=== PATIENT | female | born 1990 | race Caucasian/White ===

== ENCOUNTER 2021-04-01 23:11 | Emergency (ER) | payer MEDICAID, SELFPAY ==
[2021-04-01 23:24] VITALS: BP 109/61; PULSE 81; RESP 16; TEMP 36.6; O2SAT 95; BMI 48.2
[2021-04-01 23:42] LABS: Appearance Urine CLEAR; Color Urine YELLOW; Glucose Urine UA NEG (NEG); Leukocyte Esterase Urine NEG (NEG); Nitrite Urine NEG (NEG); Specific Gravity - Urine >= 1.030 (1.005-1.025); Urine Blood NEG (NEG); Urine Ketones NEG (NEG); Urine Protein NEG (NEG-TRACE)
[2021-04-01 23:43] LABS: UPreg QC Valid YES; Urine Pregnancy NEGATIVE (NEGATIVE)
[2021-04-02 00:06] VITALS: BP 123/51; PULSE 75; RESP 18; TEMP 36.5; O2SAT 98
--- NOTE | 2021-04-02 00:16 | ED_ITS ---
HPI - Abdominal Pain General Chief Complaint: Abdominal Pain Stated Complaint: Abd pain Time Seen by Provider: 04/01/21 23:47 Source: patient Mode of arrival: ambulatory History of Present Illness HPI narrative: 30-year-old female without significant past medical history other than prior cholecystectomy presents with 2 days sharp, epigastric pain that is been associated with nausea, vomiting, diarrhea but patient denies any fever, chills, food contamination in states that she tried to eat twice a day, however developed vomiting afterwards. She denies any prescription drugs to include control and denies any use of alcohol. She denies any history of kidney stones. Related Data Previous Rx's Medication Instructions Recorded omeprazole 40 mg capsule,delayed 40 mg PO DAILY 30 Days #30 cap 04/02/21 release Allergies Allergy/AdvReac Type Severity Reaction Status Date / Time No Known Allergies Allergy Verified 04/01/21 23:22 [No Known Allergies*] Review of Systems Review of Systems Pertinent positives and negatives as stated in HPI 10 point review of systems is otherwise negative. Physical Exam Vital Signs: Vital Signs: Last Vital Signs Temp 97.7 F 04/02/21 00:06 Pulse 75 04/02/21 00:06 Resp 18 04/02/21 00:06 BP 123/51 L 04/02/21 00:06 Pulse Ox 98 04/02/21 00:06 Body Mass Index 48.2 VITAL SIGNS: Reviewed. GENERAL: Well developed, well nourished, in no acute distress. HEAD: Normocephalic/atraumatic EYES: PERRLA, EOMI OROPHARYNX: no oral lesions noted, posterior pharynx clear LUNGS: Normal breath sounds. No adventitious sounds or accessory muscle use. SpO2<98> CARDIOVASCULAR: Regular rate and rhythm without noted murmurs ABDOMEN: Obese, Soft, tenderness in epigastrium and right upper quadrant without rebound, non-distended with bowel sounds, no CVA tenderness SKIN: Inspection of the skin reveals no rashes NEUROLOGIC: Alert and oriented x 4. Course Course Course Narrative: 30-year-old female with history and clinical presentation suggestive of gastritis/ulcer, pancreatitis. Review of all investigations negative for acute findings and all results were discussed with the patient at bedside. She did receive a GI cocktail and on reassessment states that she has had improvement in her symptoms. She is noted to have tolerated oral intake prior to discharge. MDM - Abdominal Pain Lab Data Result diagrams: 04/02/21 00:18 04/02/21 00:18 Labs: Lab Results 04/01/21 04/01/21 04/02/21 Range/Units 23:35 23:35 00:18 WBC 4.6 L (4.8-10.8) X10*3/uL RBC 4.49 (4.20-5.50) X10*6/uL Hgb 12.4 (12.0-16.0) g/dl Hct 38.6 (37-47) % MCV 86.0 (80-98) fL MCH 27.6 (27.0-33.0) pg MCHC 32.1 (31.0-35.0) g/dl RDW 12.9 (11.0-16.0) % Plt Count 198 (160-400) X10*3/uL MPV 8.9 L (9.4-12.3) fL Immature Gran % (Auto) 0.2 (0.0-0.4) % Neut % (Auto) 55.2 (45-73) % Lymph % (Auto) 35.8 (20-40) % [place] % (Auto) 6.8 (2-11) % Eos % (Auto) 1.8 (0-4) % Baso % (Auto) 0.2 (0-2) % Lymph # (Auto) 1.6 (1.2-4.9) X10*3/uL [place] # (Auto) 0.3 (0.1-1.2) X10*3/uL Eos # (Auto) 0.1 (0.0-0.4) X10*3/uL Baso # (Auto) 0.0 (0.0-0.2) X10*3/uL Abs Immat Gran (auto) 0.01 (0.00-0.03) X10*3/uL Absolute Neuts (auto) 2.5 (2.0-8.3) X10*3/uL Absolute Nucleated RBC 0.000 (0.0-0.012) X10*3/uL Nucleated RBC % (auto) 0.0 (0.0-0.2) /100WBC Sodium (135-145) mmol/L Potassium (3.3-5.1) mmol/L Chloride (96-108) mmol/L Carbon Dioxide (22-29) mmol/L Anion Gap (12-20) BUN (9-16) mg/dL Creatinine (0.5-1.4) mg/dL Estim Creat Clear Calc Estimated GFR Random Glucose (60-115) mg/dL Calcium (8.4-10.2) mg/dL Total Bilirubin (0.0-1.0) mg/dL AST (5-31) U/L ALT (0-31) U/L Alkaline Phosphatase (39-117) U/L Total Protein (6.5-8.0) g/dL Albumin (3.5-5.0) g/dL Lipase (8-78) U/L Urine Color YELLOW Urine Appearance CLEAR Urine pH 6.0 (5.0-8.0) Ur Specific [place] >= 1.030 H (1.005-1.025) Urine Protein NEG (NEG-TRACE) MG/DL Urine Glucose (UA) NEG (NEG) MG/DL Urine Ketones NEG (NEG) MG/DL Urine Blood NEG (NEG) Urine Nitrite NEG (NEG) Ur Leukocyte Esterase NEG (NEG) Urine Test NEGATIVE (NEGATIVE) 04/02/21 Range/Units 00:18 WBC (4.8-10.8) X10*3/uL RBC (4.20-5.50) X10*6/uL Hgb (12.0-16.0) g/dl Hct (37-47) % MCV (80-98) fL MCH (27.0-33.0) pg MCHC (31.0-35.0) g/dl RDW (11.0-16.0) % Plt Count (160-400) X10*3/uL MPV (9.4-12.3) fL Immature Gran % (Auto) (0.0-0.4) % Neut % (Auto) (45-73) % Lymph % (Auto) (20-40) % [place] % (Auto) (2-11) % Eos % (Auto) (0-4) % Baso % (Auto) (0-2) % Lymph # (Auto) (1.2-4.9) X10*3/uL [place] # (Auto) (0.1-1.2) X10*3/uL Eos # (Auto) (0.0-0.4) X10*3/uL Baso # (Auto) (0.0-0.2) X10*3/uL Abs Immat Gran (auto) (0.00-0.03) X10*3/uL Absolute Neuts (auto) (2.0-8.3) X10*3/uL Absolute Nucleated RBC (0.0-0.012) X10*3/uL Nucleated RBC % (auto) (0.0-0.2) /100WBC Sodium 142 (135-145) mmol/L Potassium 3.6 (3.3-5.1) mmol/L Chloride 108 (96-108) mmol/L Carbon Dioxide 29 (22-29) mmol/L Anion Gap 9 L (12-20) BUN 11 (9-16) mg/dL Creatinine 0.72 (0.5-1.4) mg/dL Estim Creat Clear Calc 144.3 Estimated GFR > 60 Random Glucose 87 (60-115) mg/dL Calcium 9.0 (8.4-10.2) mg/dL Total Bilirubin 0.2 (0.0-1.0) mg/dL AST 14 (5-31) U/L ALT 18 (0-31) U/L Alkaline Phosphatase 81 (39-117) U/L Total Protein 6.6 (6.5-8.0) g/dL Albumin 3.8 (3.5-5.0) g/dL Lipase 34 (8-78) U/L Urine Color Urine Appearance Urine pH (5.0-8.0) Ur Specific [place] (1.005-1.025) Urine Protein (NEG-TRACE) MG/DL Urine Glucose (UA) (NEG) MG/DL Urine Ketones (NEG) MG/DL Urine Blood (NEG) Urine Nitrite (NEG) Ur Leukocyte Esterase (NEG) Urine Test (NEGATIVE) Discharge Plan Discharge Clinical Impression: Gastroenteritis, Abdominal discomfort Patient Disposition: Home, Self-Care Instructions: Gastritis (ED), Diet for Stomach Ulcers and Gastritis (ED), Gastroenteritis (ED) Additional Instructions: Follow-up with your primary care provider Saturday morning for re-evaluation and further outpatient management. Return to the ER for acute worsening of symptoms. Prescriptions: New omeprazole 40 mg capsule,delayed release(DR/EC) 40 mg PO DAILY 30 Days Qty: 30 RF: 0 PMFSH Past Medical History Source: nursing notes reviewed Medical History No known health problems Social History Social History Alcohol intake: never Patient Tobacco Use Status: Never used Tobacco Use of substances other than those prescribed or required for medical reasons: No Advance Directives: No Advance Directives Information Provided: Yes
[2021-04-02 00:26] LABS: MANUAL DIFF FLAG NO
[2021-04-02 00:27] LABS: Basophils Percent Auto 0.2 % (0-2); Eosinophils Absolute Auto 0.1 X10*3/uL (0.0-0.4); Eosinophils Percent Auto 1.8 % (0-4); Hematocrit 38.6 % (37-47); Hemoglobin 12.4 g/dl (12.0-16.0); Imm Gran Abs Auto 0.01 X10*3/uL (0.00-0.03); Imm Gran Pct Auto 0.2 % (0.0-0.4); Lymphocytes Absolute Auto 1.6 X10*3/uL (1.2-4.9); Lymphocytes Percent Auto 35.8 % (20-40); Mean Corpuscular HGB Conc 32.1 g/dl (31.0-35.0); Mean Corpuscular Hemoglobin 27.6 pg (27.0-33.0); Mean Platelet Volume 8.9 fL (9.4-12.3); Monocytes Absolute Auto 0.3 X10*3/uL (0.1-1.2); Monocytes Percent Auto 6.8 % (2-11); Neutrophils Absolute Auto 2.5 X10*3/uL (2.0-8.3); Neutrophils Percent Auto 55.2 % (45-73); Platelet Count 198 X10*3/uL (160-400); Red Blood Count 4.49 X10*6/uL (4.20-5.50); Red Cell Distribution Width 12.9 % (11.0-16.0); White Blood Count 4.6 X10*3/uL (4.8-10.8)
[2021-04-02 00:48] LABS: Alanine Aminotransferase 18 U/L (0-31); Albumin Level 3.8 g/dL (3.5-5.0); Alkaline Phosphatase 81 U/L (39-117); Anion Gap 9 (12-20); Aspartate Amino Transferase 14 U/L (5-31); Bilirubin Total 0.2 mg/dL (0.0-1.0); Blood Urea Nitrogen 11 mg/dL (9-16); Carbon Dioxide 29 mmol/L (22-29); Chloride 108 mmol/L (96-108); Creatinine Clr Calc Pharmacy 144.3; Estimated Glomerular Filt Rate > 60; Glucose Random 87 mg/dL (60-115); Lipase 34 U/L (8-78); Potassium 3.6 mmol/L (3.3-5.1); Sodium 142 mmol/L (135-145); Total Protein 6.6 g/dL (6.5-8.0)
[2021-04-02] MEDS: Magnesium Hydrox/Alum Hydrox 30 ML ORAL.SUSP PO (00:59)
[2021-04-02] MEDS: Lidocaine HCl Viscous 2 % 15 ML SOLUTION 10 ML MUCOUS MEM (00:59)
== END 2021-04-02 02:29 | disposition home or self-care (01) ==
PROVIDERS: Emergency Provider Student in an Organized Health Care Education/Training Program
DX: K52.9 Noninfective gastroenteritis and colitis, unspecified (principal); Z90.49 Acquired absence of other specified parts of digestive tract
CPT/HCPCS: 36415; 80053; 81003; 81025; 83690; 85025; 99283; 99285

== ENCOUNTER 2021-06-04 19:02 | Inpatient (IN) | payer MEDICAID, SELFPAY ==
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
[2021-06-04 22:45] VITALS: BP 160/88; PULSE 98; RESP 20; TEMP 36.8; O2SAT 99; BMI 48.2
[2021-06-04 23:09] LABS: MANUAL DIFF FLAG NO
[2021-06-04 23:14] LABS: Basophils Percent Auto 0.3 % (0-2); Eosinophils Absolute Auto 0.1 X10*3/uL (0.0-0.4); Eosinophils Percent Auto 0.7 % (0-4); Hemoglobin 13.1 g/dl (12.0-16.0); Imm Gran Abs Auto 0.02 X10*3/uL (0.00-0.03); Imm Gran Pct Auto 0.3 % (0.0-0.4); Lymphocytes Absolute Auto 1.9 X10*3/uL (1.2-4.9); Lymphocytes Percent Auto 26.8 % (20-40); Mean Corpuscular Hemoglobin 27.9 pg (27.0-33.0); Mean Corpuscular Volume 87.2 fL (80.0-98.0); Monocytes Absolute Auto 0.4 X10*3/uL (0.1-1.2); Neutrophils Absolute Auto 4.8 x10*3/uL (2.0-8.3); Neutrophils Percent Auto 66.9 % (45-73); Platelet Count 240 X10*3/uL (160-400); Red Cell Distribution Width 13.1 % (11.0-16.0); White Blood Count 7.2 X10*3/uL (4.8-10.8)
[2021-06-04 23:27] LABS: Anion Gap 14 (12-20); Blood Urea Nitrogen 8 mg/dL (9-16); Calcium 9.3 mg/dL (8.4-10.2); Carbon Dioxide 23 mmol/L (22-29); Chloride 107 mmol/L (96-108); Creatinine Clr Calc Pharmacy 142.4; Estimated Glomerular Filt Rate > 60; Glucose Random 95 mg/dL (60-115); Potassium 3.8 mmol/L (3.3-5.1); Sodium 140 mmol/L (135-145)
--- NOTE | 2021-06-05 02:25 | ED_ITS ---
HPI - Extremity Problem General Chief complaint: Extremity Injury, Upper Stated complaint: cat bite Time Seen by Provider: 06/05/21 01:10 Source: patient Mode of arrival: ambulatory Limitations: no limitations History of Present Illness HPI Narrative: Patient no significant past medical history, was bit by her cat l ast night on the right index finger when she was trying to separate her Cat from the dog. Patient had punctured wound on the dorsum of the right index finger within 24 hours redness has spread to the right elbow with difficulty in moving her finger sensations are intact. Cat behavior otherwise was normal and is indoor cat Related Data Home Medications Medication Instructions Recorded Confirmed lamotrigine 25 mg PO 06/05/21 olanzapine 5 mg PO 06/05/21 Previous Rx's Medication Instructions Recorded omeprazole 40 mg capsule,delayed 40 mg PO DAILY 30 Days #30 cap 04/02/21 release Allergies Allergy/AdvReac Type Severity Reaction Status Date / Time No Known Allergies Allergy Verified 06/05/21 04:00 [No Known Allergies*] Review of Systems Review of Systems: Yes all other systems are reviewed and are negative PMFSH Past Medical History Medical History No known health problems Social History Social History Alcohol intake: never Patient Tobacco Use Status: Never used Tobacco Use of substances other than those prescribed or required for medical reasons: No Advance Directives: No Advance Directives Information Provided: Yes Physical Exam Vital Signs: Vital Signs: Last Vital Signs Temp 98.1 F 06/05/21 03:26 Pulse 84 06/05/21 03:26 Resp 20 06/04/21 22:45 BP 134/88 06/05/21 03:26 Pulse Ox 97 06/05/21 03:26 BMI result Body Mass Index 48.2 Const: General: healthy appearing, comfortable and no acute distress Orientation/consciousness: patient oriented x3 HENMT: Head: Yes normal to inspection Resp: Effort & Inspection: normal respiratory effort Auscultation: clear to auscultation bilaterally Cardio: Rate: regular rate Rhythm: regular rhythm Heart sounds: S1 normal heart sound present and S2 normal heart sound present GI: Inspection: Yes normal to inspection Palpation (GI): Soft to palpation and nontender Neuro: General: patient oriented x3 Extrem: Other: Hand/finger images: 1. Swollen right index finger with punctured teeth godinez, painful active movement of the left index finger sensation intact painful but able to flex right index finger on passive movement neurovascular intact, MDM - Extremity (Nontraumatic) MDM Narrative Medical decision making narrative: Patient's cellulitis of right index finger after care by at this time there is no signs of tenosynovitis no significant pump tenderness although redness is spreading in the distal part of the arm impending tenosynovitis. Will admit patient for IV antibiotic and ortho consult, x-ray of the hand negative for any bone erosion. Tetanus booster shot was given to the patient Lab Data Attestation: I reviewed the patient's lab results. Result diagrams: 06/04/21 22:50 06/04/21 22:50 Labs: Lab Results 06/04/21 06/04/21 06/05/21 Range/Units 22:50 22:50 03:26 WBC 7.2 (4.8-10.8) X10*3/uL RBC 4.70 (4.20-5.50) X10*6/uL Hgb 13.1 (12.0-16.0) g/dl Hct 41.0 (37.0-47.0) % MCV 87.2 (80.0-98.0) fL MCH 27.9 (27.0-33.0) pg MCHC 32.0 (31.0-35.0) g/dl RDW 13.1 (11.0-16.0) % Plt Count 240 (160-400) X10*3/uL MPV 9.0 L (9.4-12.3) fL Immature Gran % (Auto) 0.3 (0.0-0.4) % Neut % (Auto) 66.9 (45-73) % Lymph % (Auto) 26.8 (20-40) % [place] % (Auto) 5.0 (2-11) % Eos % (Auto) 0.7 (0-4) % Baso % (Auto) 0.3 (0-2) % Lymph # (Auto) 1.9 (1.2-4.9) X10*3/uL [place] # (Auto) 0.4 (0.1-1.2) X10*3/uL Eos # (Auto) 0.1 (0.0-0.4) X10*3/uL Baso # (Auto) 0.0 (0.0-0.2) X10*3/uL Abs Immat Gran (auto) 0.02 (0.00-0.03) X10*3/uL Absolute Neuts (auto) 4.8 (2.0-8.3) x10*3/uL Absolute Nucleated RBC 0.000 (0.0-0.012) X10*3/uL Nucleated RBC % (auto) 0.0 (0.0-0.2) /100WBC Sodium 140 (135-145) mmol/L Potassium 3.8 (3.3-5.1) mmol/L Chloride 107 (96-108) mmol/L Carbon Dioxide 23 (22-29) mmol/L Anion Gap 14 (12-20) BUN 8 L (9-16) mg/dL Creatinine 0.73 (0.5-1.4) mg/dL Estim Creat Clear Calc 142.4 Estimated GFR > 60 Random Glucose 95 (60-115) mg/dL Lactic Acid 0.8 (0.5-2.0) mmol/L Calcium 9.3 (8.4-10.2) mg/dL COVID-19 ([facility]) (Negative) COVID-19 Clin Com 06/05/21 Range/Units 03:26 WBC (4.8-10.8) X10*3/uL RBC (4.20-5.50) X10*6/uL Hgb (12.0-16.0) g/dl Hct (37.0-47.0) % MCV (80.0-98.0) fL MCH (27.0-33.0) pg MCHC (31.0-35.0) g/dl RDW (11.0-16.0) % Plt Count (160-400) X10*3/uL MPV (9.4-12.3) fL Immature Gran % (Auto) (0.0-0.4) % Neut % (Auto) (45-73) % Lymph % (Auto) (20-40) % [place] % (Auto) (2-11) % Eos % (Auto) (0-4) % Baso % (Auto) (0-2) % Lymph # (Auto) (1.2-4.9) X10*3/uL [place] # (Auto) (0.1-1.2) X10*3/uL Eos # (Auto) (0.0-0.4) X10*3/uL Baso # (Auto) (0.0-0.2) X10*3/uL Abs Immat Gran (auto) (0.00-0.03) X10*3/uL Absolute Neuts (auto) (2.0-8.3) x10*3/uL Absolute Nucleated RBC (0.0-0.012) X10*3/uL Nucleated RBC % (auto) (0.0-0.2) /100WBC Sodium (135-145) mmol/L Potassium (3.3-5.1) mmol/L Chloride (96-108) mmol/L Carbon Dioxide (22-29) mmol/L Anion Gap (12-20) BUN (9-16) mg/dL Creatinine (0.5-1.4) mg/dL Estim Creat Clear Calc Estimated GFR Random Glucose (60-115) mg/dL Lactic Acid (0.5-2.0) mmol/L Calcium (8.4-10.2) mg/dL COVID-19 ([facility]) Negative (Negative) COVID-19 Clin Com See Note Discharge Plan Discharge Clinical Impression: Cellulitis of finger of right hand Cat bite of index finger Qualifiers: Encounter type: initial encounter Qualified Code(s): S61.258A - Open bite of other finger without damage to nail, initial encounter Patient Disposition: Admitted As Inpatient
[2021-06-05 03:26] VITALS: BP 134/88; PULSE 84; TEMP 36.7; O2SAT 97
[2021-06-05] MEDS: Diphth,Pertus(ACell),Tet Adult 0.5 ML SYRINGE IM (03:31)
--- NOTE | 2021-06-05 03:32 | P.HPHOSP_ITS ---
History of Present Illness Date of Service: 06/05/21 Chief Complaint: Cat bite This is a 30-year-old female with no significant past medical history who presents to the hospital with complaints of CT by earlier in the evening. Patient reports that she was playing with her cat when her cat was scared up by her cousin dog and bit her right hand. She eventually developed significant pain in her hand that woke her from sleep,, discovered significant swelling of her right hand, and pressure. Decided to come to the ED due to the intolerable pain. Pain is 10/10 radiating upper arm, worse with minimal touch. patient otherwise denies any fever no chills, no abdominal pain nausea or vomiting chest pain or shortness of breath, no urinary symptoms and no lower extremity edema. No numbness tingling. Has difficulty moving her fingers on the right hand due to the pain. On arrival to the ED vitals are significant for a temp of 97.8?, rate of 81, respiratory rate of 16, blood pressure of 109/61, satting 95% on room air. Labs are significant for WBC count of 7.2, otherwise unremarkable Hand x-ray shows no acute fracture or malalignment Due to the significant pain as well as swelling and erythema will admit patient for IV antibiotics and pain control Review of Systems Review of Systems: Yes all other systems are reviewed and are negative [facility] Medical History No known health problems Family History (Updated 06/05/21 @ 05:42 by Nan Scanlon MD) Mother Depression Surgical History (Updated 06/05/21 @ 05:42 by Nan Scanoln MD) History of Social History Alcohol intake: never Patient Tobacco Use Status: Never used Tobacco Use of substances other than those prescribed or required for medical reasons: No Advance Directives: No Advance Directives Information Provided: Yes Meds Allergies Allergy/AdvReac Type Severity Reaction Status Date / Time No Known Allergies Allergy Verified 06/05/21 04:00 [No Known Allergies*] Home Medications Medication Instructions Recorded Confirmed Last Taken Type lamotrigine 25 mg PO 06/05/21 06/03/21 History olanzapine 5 mg PO 06/05/21 06/03/21 History Physical Exam Vital Signs and Narrative: Vital Signs: Last Vital Signs Temp 98.1 F 06/05/21 03:26 Pulse 84 06/05/21 03:26 Resp 20 06/04/21 22:45 BP 134/88 06/05/21 03:26 Pulse Ox 97 06/05/21 03:26 BMI result Body Mass Index 48.2 Const: General: cooperative and no acute distress Orientation/consciou sness: patient oriented x3 Eyes: General: appearance normal, both eyes and all related structures Pupils: Equal, round and reactive pupils present Resp: Effort & Inspection: normal respiratory effort Auscultation: clear to auscultation bilaterally Cardio: Rate: regular rate Rhythm: regular rhythm GI: Palpation (GI): Soft to palpation Auscultation: normal bowel sounds Skin: Other: Right hand puncture wounds localized to the space between the thumb and index finger, there is erythema warmth, significant tenderness as well as edema Neuro: General: patient oriented x3 Cranial nerves: Yes Equal, round and reactive pupils present Cognition (Neuro): normal cognition Extrem: Other: See skin General: Yes normal to inspection Results Labs CBC and Chem 7: 06/04/21 22:50 06/04/21 22:50 Labs: Laboratory Results - last 24 hr 06/04/21 06/04/21 22:50 22:50 MCV 87.2 MCH 27.9 MCHC 32.0 RDW 13.1 Plt Count 240 MPV 9.0 L Immature Gran % (Auto) 0.3 Neut % (Auto) 66.9 Lymph % (Auto) 26.8 [place] % (Auto) 5.0 Eos % (Auto) 0.7 Baso % (Auto) 0.3 Lymph # (Auto) 1.9 [place] # (Auto) 0.4 Eos # (Auto) 0.1 Baso # (Auto) 0.0 Abs Immat Gran (auto) 0.02 Absolute Neuts (auto) 4.8 Absolute Nucleated RBC 0.000 Nucleated RBC % (auto) 0.0 Anion Gap 14 Estim Creat Clear Calc 142.4 Estimated GFR > 60 Random Glucose 95 Calcium 9.3 Imaging Radiologist's Impressions: Impressions Hand X-Ray 06/04/21 23:14 IMPRESSION: No acute fractures or malalignment. Assessment and Plan (1) Cat bite of index finger: Qualifiers: Encounter type: initial encounter Qualified Code(s): S61.258A - Open bite of other finger without damage to nail, initial encounter; W55.01XA - Bitten by cat, initial encounter Status: Acute (2) Cellulitis of finger of right hand: Status: Acute 30-year-old female with no significant past medical history who presents to the hospital after experiencing a cat bite from home cat # CT but with developed cellulitis - has erythema, significant tenderness, warmth, and edema the right hand with multiple bite punctures - patient is afebrile, has no leukocytosis - will start her on IV antibiotics - pain control - most likely can be discharged in a.m. with p.o. antibiotics if patient is pain is tolerated DVT prophylaxis: Lovenox Quality Stroke Does the patient have a stroke diagnosis?: No VTE Prior VTE?: No VTE Risk Level:: Medical - moderate - high VTE Device Contraindication: Treatment Not Indicated VTE Drug Contraindication: N/A - Med Ordered
[2021-06-05] MEDS: Piperacillin Sodium/Tazobactam 3.375 GM in 0.9 % Sodium Chloride 50 ML IV (03:34)
[2021-06-05 04:00] LABS: Lactic Acid 0.8 mmol/L (0.5-2.0)
[2021-06-05 04:03] LABS: COVID-19 Test Negative (Negative); IDNOW Serial# 9DD0AD1C
[2021-06-05] MEDS: Ampicillin Sodium/Sulbactam Na 3 GM in 0.9 % Sodium Chloride 100 ML IV ×3 (06:47→22:41)
[2021-06-05] MEDS: Enoxaparin Sodium 40 MG/0.4 ML SYRINGE SUBCUT (06:53)
--- NOTE | 2021-06-05 06:57 | PC.NURSE ---
medicate per mar.
[2021-06-05 07:30] LABS: MANUAL DIFF FLAG NO
[2021-06-05 07:31] VITALS: BP 127/76; PULSE 89; RESP 12; TEMP 37.1; O2SAT 97
--- NOTE | 2021-06-05 07:32 | PC.NURSE ---
recived patient in bed resting comfortably. Area of swelling receding from marked outline. Pt states feels better, wants to go home.
[2021-06-05 08:01] LABS: Anion Gap 11 (12-20); Blood Urea Nitrogen 8 mg/dL (9-16); Calcium 8.9 mg/dL (8.4-10.2); Carbon Dioxide 26 mmol/L (22-29); Chloride 106 mmol/L (96-108); Creatinine Clr Calc Pharmacy 159.9; Estimated Glomerular Filt Rate > 60; Glucose Random 94 mg/dL (60-115); Potassium 3.7 mmol/L (3.3-5.1); Sodium 139 mmol/L (135-145)
--- NOTE | 2021-06-05 08:51 | PM.EVENT ---
Event Note Date of Service: 06/05/21 Event Note: Patient already been seen this morning by hospitalist team right hand cat bite. physical exam: Appearance: Alert.? Oriented X3.? not in distress.? Eyes: Pupils equal, round and reactive to light.? Sclera nonicteric.? ENT: Pharynx normal.? Moist mucous membranes. cvs: rrr, [id number] , no murmur res: clear to auscultation ,no rhonchii or wheezing abd: no rebound or guarding ,nt, bs present. ext pulses present , no cyanosis Skin: right hand still has swelling slightly better than yesterday -difficult to make fist , extension is also slightly limited otherwise all seems soft compartment alexis ,no drainage neuro: axo3 , nonfocal. Assessment and plan: As per H and continue IV antibiotic id evaluation/ortho eval.
[2021-06-05 09:41] LABS: Basophils Percent Auto 0.3 % (0-2); Eosinophils Absolute Auto 0.1 X10*3/uL (0.0-0.4); Eosinophils Percent Auto 1.3 % (0-4); Hematocrit 39.4 % (37.0-47.0); Hemoglobin 12.4 g/dl (12.0-16.0); Imm Gran Abs Auto 0.01 X10*3/uL (0.00-0.03); Imm Gran Pct Auto 0.2 % (0.0-0.4); Lymphocytes Percent Auto 33.3 % (20-40); Mean Corpuscular HGB Conc 31.5 g/dl (31.0-35.0); Mean Corpuscular Hemoglobin 27.4 pg (27.0-33.0); Mean Platelet Volume 9.3 fL (9.4-12.3); Monocytes Absolute Auto 0.4 X10*3/uL (0.1-1.2); Monocytes Percent Auto 6.7 % (2-11); Neutrophils Absolute Auto 3.5 x10*3/uL (2.0-8.3); Neutrophils Percent Auto 58.2 % (45-73); Platelet Count 240 X10*3/uL (160-400); Red Blood Count 4.53 X10*6/uL (4.20-5.50); Red Cell Distribution Width 13.3 % (11.0-16.0)
--- NOTE | 2021-06-05 10:41 | PHA.MEDREC ---
Pharmacy Consult ? Medication Reconciliation Pharmacy has completed the medication reconciliation. There are no remarkable issues. Patient bibiana in RX bottles. Lamotrigine and Olanzapine were just recently started. Radha Davila, PharmD
[2021-06-05 11:28] VITALS: BP 116/62; PULSE 89; RESP 16; TEMP 36.5; O2SAT 92
[2021-06-05] MEDS: 0.9 % Sodium Chloride Flush 3 ML SYRINGE IVFLUSH (12:42)
--- NOTE | 2021-06-05 12:58 | MHC.CM.PN ---
PT REPORTS SHE LIVES AT HOME WITH HER AND CHILDREN SHE REPORTS SHE IS INDEPENDENT WITH CARE PT DENIES USE OF DME OR HOME/COMMUNITY SERVICES PT REPORTS SHE DOES NOT HAVE A PCP AT THIS TIME BUT DOES KNOW HOW TO GET ONE WITH HER INSURANCE CURRENT DC PLAN IS HOME WITH NO SERVICES PT TO [facility] TRANSPORT
--- NOTE | 2021-06-05 13:39 | P.CONOP_ITS ---
History of Present Illness HPI Consult date: 06/05/21 Chief complaint: cat bite Narrative: the patient is a 30-year-old woman who was bitten by Her cat on 09/01/2020. she came to the emergency department yesterday with complaints of pain swelling and redness in her right hand. She has been admitted for IV antibiotics and we have been consulted regarding her right hand infection. The patient says she is already feeling better since getting her 1st dose of IV antibiotics at 3:00 a.m. this morning. [facility] Past Medical History Medical History No known health problems Family History Family History (Updated 06/05/21 @ 05:42 by Nan Scanlon MD) Mother Depression Surgical History Surgical History (Updated 06/05/21 @ 05:42 by Nan Scanlon MD) History of Social History Social History Alcohol intake: never Patient Tobacco Use Status: Never used Tobacco Use of substances other than those prescribed or required for medical reasons: No Advance Directives: No Advance Directives Information Provided: Yes service: No Current occupational status: unemployed Meds Allergies Allergy/AdvReac Type Severity Reaction Status Date / Time No Known Allergies Allergy Verified 06/05/21 04:00 [No Known Allergies*] Active Medications: Current Medications Acetaminophen (Acetaminophen 325 Mg Tablet) 650 mg PO Q6H PRN PRN Reason: Pain, Mild (Pain Scale 1-3) Enoxaparin Sodium (Enoxaparin Sodium 40 Mg/0.4 Ml Syringe) 40 mg SUBCUT Q24H [facility] Last Admin: 06/05/21 06:53 Dose: 40 mg Documented by: Ampicillin Sodium/Sulbactam (Sodium 3 gm/ Sodium Chloride) 100 mls @ 200 mls/hr IV Q8H [facility] Last Admin: 06/05/21 06:47 Dose: 200 mls/hr Documented by: Ondansetron HCl (Ondansetron Hcl 4 Mg/2 Ml Vial) 4 mg IVPUSH Q8H PRN PRN Reason: Nausea and Vomiting Oxycodone HCl (Oxycodone Hcl Immed Release 5 Mg Tablet) 5 mg PO Q6H PRN PRN Reason: Pain, Severe (Pain Scale 7-10) Pharmacy Consult (Consult Rx Perform Med Rec) 1 each MISCELLANE ONCE PRN PRN Reason: Consult order Sodium Chloride (0.9 % Sodium Chloride Flush 3 Ml Syringe) 3 [facility] Last Admin: 06/05/21 12:42 Dose: 3 ml Documented by: Home Medications Medication Instructions Recorded Confirmed Last Taken Type lamotrigine 25 mg tablet 25 mg PO DAILY 06/05/21 06/05/21 06/03/21 History olanzapine 5 mg tablet 5 mg PO DAILY 06/05/21 06/05/21 06/03/21 History Physical Exam Vital Signs: Vital Signs: Last Vital Signs Temp 97.7 F 06/05/21 11:28 Pulse 89 06/05/21 11:28 Resp 16 06/05/21 11:28 BP 116/62 06/05/21 11:28 Pulse Ox 92 06/05/21 11:28 BMI result Body Mass Index 48.2 Const: General: cooperative, healthy appearing and no acute distress Orientation/consciousness: oriented to person and oriented to place HENMT: Head: Yes normocephalic and Yes atraumatic Eyes: EOM: EOMs intact bilaterally Resp: Effort & Inspection: normal respiratory effort and able to speak in complete sentences Cardio: Jugular venous distension: no JVD Skin: General skin exam: turgor normal Rashes: no rashes Neuro: General: oriented to person and oriented to place Extrem: Other: Evaluation of Right Upper Extremity: Neuro: Median, ulnar, radial nerves motor and sensory grossly intact. Vascular: Cap refill brisk. She has 4 bite wounds over the dorsal aspect of her right index finger p roximal phalanx and distal aspect of the 2nd metacarpal. She has some erythema and swelling in the area of the distal row ulnar 1st web space extending across the proximal phalanx of the index finger and to the dorsal aspect of the 2nd webspace. Volarly there are no bite wounds but she does have tenderness over the volar aspect of the 2nd web space and the volar aspect of the index finger between the A1 ajay and the PIP joint. She is however able to actively flex and extend at the PIP and D IP joints without much difficulty. No tenderness along the flexor tendon sheath Proximal to the A1 ajay and into the palm. no pain with axial loading of the PIP and MCP joints of the index finger. The areas of swelling are all rather soft and mildly tender. Again the patient says that her symptoms have improved since last night. No pain or tenderness about the thumb middle ring or small fingers. No pain with active flexion extension of the wrist. Radiographs: three views of the patient's right hand were reviewed by me today. They show no fractures or dislocations. They also show no foreign bodies. Psych: Appearance: grossly normal Affect: normal affect Attitude: cooperative Results Labs Result Diagrams: 06/05/21 06:52 06/05/21 06:52 Labs: Abnormal lab results 06/04/21 06/04/21 06/05/21 Range/Units 22:50 22:50 06:52 MPV 9.0 L 9.3 L (9.4-12.3) fL Anion Gap (12-20) BUN 8 L (9-16) mg/dL 06/05/21 Range/Units 06:52 MPV (9.4-12.3) fL Anion Gap 11 L (12-20) BUN 8 L (9-16) mg/dL H & H 06/04/21 06/05/21 Range/Units 22:50 06:52 Hgb 13.1 12.4 (12.0-16.0) g/dl Hct 41.0 39.4 (37.0-47.0) % All other labs normal. Assessment and Plan (1) Cellulitis of finger of right hand: Status: Acute (2) Cat bite of index finger: Qualifiers: Encounter type: initial encounter Qualified Code(s): S61.258A - Open bite of other finger without damage to nail, initial encounter; W55.01XA - Bitten by cat, initial encounter Status: Acute Assessment and plan: 1. Right hand cellulitis status post cat bite date of injury 06/03/2021 I do not see any evidence of flexor tenosynovitis or septic joint. While she does have some swelling and erythema the tissues are soft and improving on IV antibiotics. This appears to be most consistent with a cellulitis. Continue with IV antibiotics. Agree with possible discharge tomorrow On oral antibiotics if symptoms are improved. Procedures Date of Service Date of Service: 06/05/21
[2021-06-05 15:18] VITALS: BP 114/64; PULSE 89; RESP 20; TEMP 36.3; O2SAT 98
--- NOTE | 2021-06-05 15:39 | PC.NURSE ---
Pt A&Ox3, LCA, minimal pain at this time. Pt asking for food as no tray provided for lunch, sandwich, drink and snack provided. Medicated as per [facility] orders with IV antibiotics. Call mc within reach, awaiting bed assignment. Will continue to monitor.
--- NOTE | 2021-06-05 18:17 | PC.NURSE ---
Pt received meal tray, tomato sauce sent with meal, pt states she has an allergy to tomatoes and told RN in main ED upon arrival. Called kitchen, added allergy to pt medical record and new meal try rec'd. Pt is A&Ox3, ambulatory to independently. Pt offers no complaints of pain, movement to R hand has increased. .
[2021-06-05 21:25] VITALS: BP 124/51; PULSE 90; RESP 16; TEMP 36.1; O2SAT 97
[2021-06-06] MEDS: Ampicillin Sodium/Sulbactam Na 3 GM in 0.9 % Sodium Chloride 100 ML IV (06:12)
[2021-06-06] MEDS: Enoxaparin Sodium 40 MG/0.4 ML SYRINGE SUBCUT (06:18)
--- NOTE | 2021-06-06 07:21 | P.PNOP_ITS ---
Subjective Subjective Date of Service: 06/06/21 Interval history: Patient is laying comfortably in bed. No overnight events. She reports that there has been a significant decrease in erythema and edema. She reports that she has had a decrease in pain and able to move her fingers better. Physical Exam Vital Signs: Vital Signs: Last Vital Signs Temp 97 F 06/05/21 21:25 Pulse 90 06/05/21 21:25 Resp 16 06/05/21 21:25 BP 124/51 L 06/05/21 21:25 Pulse Ox 97 06/05/21 21:25 BMI result Body Mass Index 48.2 Const: General: cooperative, healthy appearing and no acute distress Resp: Effort & Inspection: normal respiratory effort and able to speak in complete sentences Cardio: Rate: regular rate Peripheral pulses: Peripheral pulses 2+ throughout GI: Palpation (GI): Soft to palpation Skin: Lesions: no lesions Rashes: no rashes Extrem: Other: Right hand four cat bite puncture wounds on the dorsal aspect of the right index finger. SContinues to have some erythema and swelling improved from yesterday in the finger. Minimal tenderness to palpation of the 1 web space, 2nd web space and volar aspect of the index finger. Patient is able to flex and extend the digit at all joints without difficulty. No pain with axial loading. NVI. Procedures Date of Service Date of Service: 06/06/21 Progress Note: A&P Assessment and plan (1) Cat bite of index finger: Status: Acute Assessment and Plan: No evidence of flexor tenosynovitis or septic joint. Edema and erythema continues to improve on IV antibiotics.? This appears to be most consistent with a cellulitis. No further orthopedic intervention needed at this time. Would recommend d/c on oral abx per medicine. (2) Cellulitis of finger of right hand: Status: Acute Fall Risk Details Current Medications: Current Medications Acetaminophen (Acetaminophen 325 Mg Tablet) 650 mg PO Q6H PRN PRN Reason: Pain, Mild (Pain Scale 1-3) Enoxaparin Sodium (Enoxaparin Sodium 40 Mg/0.4 Ml Syringe) 40 mg SUBCUT Q24H [facility] Last Admin: 06/06/21 06:18 Dose: 40 mg Documented by: Ampicillin Sodium/Sulbactam (Sodium 3 gm/ Sodium Chloride) 100 mls @ 200 mls/hr IV Q8H [facility] Last Infusion: 06/06/21 06:50 Dose: Infused Documented by: Ondansetron HCl (Ondansetron Hcl 4 Mg/2 Ml Vial) 4 mg IVPUSH Q8H PRN PRN Reason: Nausea and Vomiting Oxycodone HCl (Oxycodone Hcl Immed Release 5 Mg Tablet) 5 mg PO Q6H PRN PRN Reason: Pain, Severe (Pain Scale 7-10) Pharmacy Consult (Consult Rx Perform Med Rec) 1 each MISCELLANE ONCE PRN PRN Reason: Consult order Sodium Chloride (0.9 % Sodium Chloride Flush 3 Ml Syringe) 3 ml IVFLUSH QSHIFT [facility] Last Admin: 06/05/21 23:01 Dose: Not Given Documented by: Time Spent With Patient Time: Total time spent is greater than 50% in coordination of care (as documented) at patient's floor/unit and/or counseling patient: Time with patient: less than 15 minutes Quality Stroke Does the patient have a stroke diagnosis?: No VTE Prior VTE?: No VTE Risk Level:: Medical - moderate - high VTE Device Contraindication: Treatment Not Indicated VTE Drug Contraindication: N/A - Med Ordered
[2021-06-06 07:41] LABS: Hematocrit 37.8 % (37.0-47.0); Hemoglobin 11.8 g/dl (12.0-16.0); Mean Corpuscular HGB Conc 31.2 g/dl (31.0-35.0); Mean Corpuscular Hemoglobin 27.3 pg (27.0-33.0); Mean Corpuscular Volume 87.5 fL (80.0-98.0); Mean Platelet Volume 9.2 fL (9.4-12.3); Platelet Count 204 X10*3/uL (160-400); Red Blood Count 4.32 X10*6/uL (4.20-5.50); Red Cell Distribution Width 13.2 % (11.0-16.0); White Blood Count 4.7 X10*3/uL (4.8-10.8)
[2021-06-06 08:12] LABS: Anion Gap 9 (12-20); Blood Urea Nitrogen 7 mg/dL (9-16); Calcium 8.8 mg/dL (8.4-10.2); Carbon Dioxide 27 mmol/L (22-29); Chloride 109 mmol/L (96-108); Creatinine Clr Calc Pharmacy 167.6; Estimated Glomerular Filt Rate > 60; Glucose Random 115 mg/dL (60-115); Potassium 3.9 mmol/L (3.3-5.1); Sodium 141 mmol/L (135-145)
--- NOTE | 2021-06-06 08:33 | P.DS_ITS ---
DS: Providers Provider Date of Service: 06/06/21 Date of admission: 06/05/21 03:32 Primary care physician: Unknown Physician Consults: 06/05/21 08:52 Consult to Infectious Diseases Routine Consulting Provider: Odalys Keen Reason for consultation: cat bite /cellulitis Has provider been notified: No 06/05/21 11:17 Consult to Orthopedics Routine Consulting Provider: Greta Carbajal Reason for consultation: hand cellulitis ,? tenosynvitis Has provider been notified: No DS: Diagnosis Discharge Diagnosis (1) Cat bite of index finger: Status: Acute (2) Cellulitis of finger of right hand: Status: Acute DS: Summary Hospital Course Hospital Course: Patient was treated with IV Ampicillin with signficant improvment by the next day with marked regression of erythema and able to move hand. She was seen by Hand surgery and there is no no flexor tenosynovitis or septic arthritis and doesn't need procedure. Will change to PO Augmentin at discharge for 10 days. The animal is vaccinated. Time Spent with Patient Time attestation: Total time spent providing and/or coordinating discharge services: Discharge coordination time: Greater than 30 minutes Quality: Stroke Does the patient have a stroke diagnosis?: No Physical Exam Verdana 4l Vital Signs: Verdana 4d Verdana 4d Vital Signs: Verdana 4d Verdana 4Bd Last Vital Signs Verdana 4d Nib Adjuster New 4d Nib Adjuster New 4d Temp 97 F 06/05/21 21:25 Nib Adjuster New 4d Pulse 90 06/05/21 21:25 Nib Adjuster New 4d Resp 16 06/05/21 21:25 BP 124/51 L 06/05/21 21:25 Pulse Ox 97 06/05/21 21:25 BMI result Body Mass Index 48.2 DS: Data Data Completed and Pending Labs on day of discharge: Laboratory Results - last 24 hr 06/05/21 06/06/21 06/06/21 06:52 06:54 06:54 WBC 6.0 4.7 L RBC 4.53 4.32 Hgb 12.4 11.8 L Hct 39.4 37.8 MCV 87.0 87.5 MCH 27.4 27.3 MCHC 31.5 31.2 RDW 13.3 13.2 Plt Count 240 204 MPV 9.3 L 9.2 L Immature Gran % (Auto) 0.2 Neut % (Auto) 58.2 Lymph % (Auto) 33.3 Daniels % (Auto) 6.7 Eos % (Auto) 1.3 Baso % (Auto) 0.3 Lymph # (Auto) 2.0 Daniels # (Auto) 0.4 Eos # (Auto) 0.1 Baso # (Auto) 0.0 Abs Immat Gran (auto) 0.01 Absolute Neuts (auto) 3.5 Absolute Nucleated RBC 0.000 0.000 Nucleated RBC % (auto) 0.0 0.0 Sodium 141 Potassium 3.9 Chloride 109 H Carbon Dioxide 27 Anion Gap 9 L BUN 7 L Creatinine 0.62 Estim Creat Clear Calc 167.6 Estimated GFR > 60 Random Glucose 115 Calcium 8.8 Preliminary micro results at discharge 06/05/21 03:26 Blood Culture - Preliminary Blood - Venous No growth after 24 hours. 06/05/21 03:26 Blood Culture - Preliminary Blood - Venous No growth after 24 hours. Discharge Plan Discharge Anticipated Discharge Date/Time: 06/06/21 08:23 Patient Disposition: Home, Self-Care Discharge Diagnosis: Cellulitis of the hand due to cat bite Referrals: Physician,Unknown J [Primary Care Provider] - 1 Week Discharge Medications: New amoxicillin-pot clavulanate [Augmentin] 875-125 mg tablet 1 tab PO Q12H Qty: 16 0RF Continued olanzapine 5 mg Tablet 5 mg PO DAILY 0RF lamotrigine 25 mg Tablet 25 mg PO DAILY 0RF Rx Instructions: TITRATE TO BID AFTER 1 WEEK. THEN INCREASE TO 3 TABLETS DAILY AFTER 3 WEEKS Discharge Orders: Discharge Order (Routine); Ordered 06/06/21 Ordered By: Francisco Palmer Diet: advance to usual diet Activity on Discharge: As tolerated Stand Alone Forms: Patient Portal Discharge page Care Plan Goals: Full recovery from cat bite Health Concerns: Celulitis due to cat bite Plan of Treatment: Take Augmentin as recommended and follow up with your Doctor in a week, call for appointment Assessment: As above Discharge Date/Time: 06/06/21 10:34
[2021-06-06 09:05] VITALS: BP 119/64; PULSE 89; RESP 16; TEMP 36.3; O2SAT 96
--- NOTE | 2021-06-06 10:42 | PC.NURSE ---
pt alert and oriented, skin pwd, respirations even and unlabored, pt denies pain at this time, right hand slightly red/swollen.
== END 2021-06-06 10:34 | disposition home or self-care (01) | DRG 384 ==
LOC: HO.ED 06-05 03:58 → HO.EDOVER 06-05 04:11 → HO.S3 06-05 15:16 → HO.EDOVER 06-05 16:43
PROVIDERS: Internal Medicine; Admitting Provider Internal Medicine; Emergency Provider Internal Medicine; Visit Provider Internal Medicine
DX: S61.230A Puncture wound without foreign body of right index finger without damage to nail, initial encounter (principal); L03.011 Cellulitis of right finger; Z20.822 Contact with and (suspected) exposure to COVID-19; W55.01XA Bitten by cat, initial encounter; Y93.9 Activity, unspecified; Y92.009 Unspecified place in unspecified non-institutional (private) residence as the place of occurrence of the external cause; Z79.899 Other long term (current) drug therapy
CPT/HCPCS: 36415; 73130; 80048; 83605; 85025; 85027; 87040; 87635; 90471; 90715; 96365; 99218; 99285; J0295; J1650; J2543

== ENCOUNTER 2023-05-06 10:36 | Emergency (ER) | payer MEDICAID, SELFPAY ==
[2023-05-06 11:00] VITALS: BP 134/83; PULSE 96; RESP 18; TEMP 36.6; O2SAT 98; BMI 49.2
--- NOTE | 2023-05-06 11:03 | ED_ITS ---
HPI - General Adult General Chief complaint: Extremity Problem Stated complaint: swelling upper l arm quest cyst Time Seen by Provider: 05/06/23 11:02 Source: patient Mode of arrival: ambulatory Limitations: no limitations History of Present Illness HPI narrative: Patient is a 32 year old assigned female at with no reported medical history presenting to the emergency department today with a lesion to her left upper arm. Patient states that 2 days ago she noticed an area on her left upper arm that was red and swollen. Patient states that yesterday it opened and began to discharge pus. Patient denies any dizziness, lightheadedness, abdominal pain, nausea, vomiting, fever, chills, blurry vision, double vision, loss of vision, chest pain, difficulty breathing, shortness of breath, back pain, night sweats, pain with urination, increased urinary frequency, increased urinary urgency, blood in her urine or stool, syncope or a near syncopal episode, recent trauma or falls, bowel incontinence, bladder incontinence, bowel retention, bladder retention, or any other complaints at this time. Onset (ago): day(s) (2) Location: left and upper extremity Severity: mild Severity scale (1-10): 3 Relieving factors: none Exacerbating factors: none Associated symptoms: denies other symptoms Treatments prior to arrival: none Related Data Home Medications Medication Instructions Recorded Confirmed lamotrigine 25 mg tablet 25 mg PO DAILY 06/05/21 06/05/21 olanzapine 5 mg tablet 5 mg PO DAILY 06/05/21 06/05/21 Previous Rx's Medication Instructions Recorded amoxicillin 875 mg-potassium 1 tab PO Q12H #16 tabs 06/06/21 clavulanate 125 mg tablet (Augmentin) cefuroxime axetil 250 mg tablet 250 mg PO BID 7 days #14 tabs 05/06/23 Allergies Allergy/AdvReac Type Severity Reaction Status Date / Time tomato Allergy Rash Verified 04/09/23 13:45 tomatoes Allergy Unknown Uncoded 04/09/23 13:45 Review of Systems 2 Constitutional: Constitutional: Reports no additional constitutional complaints, Denies chills, Denies fever(s) and Denies night sweats Eyes: Eyes: Reports no additional eye complaints, Denies blurry vision, Denies change in vision, Denies diplopia, Denies eye discharge, Denies loss of vision and Denies eye pain ENT: Denies dizziness Cardiovascular: Cardiovascular: Reports no additional cardiovascular complaints, Denies chest pain, Denies lightheadedness, Denies Loss of Consciousness and Denies dyspnea Respiratory: Respiratory: Reports no additional respiratory complaints and Denies dyspnea Gastrointestinal: Gastrointestinal: Reports no additional gastrointestinal complaints, Denies abdominal pain, Denies melena, Denies hematochezia, Denies change in bowel habits and Denies change in stool character Genitourinary: Genitourinary: Denies hematuria, Denies urinary frequency, Denies dysuria, Denies urinary incontinence, Denies urinary hesitancy and Denies urinary urgency Musculoskeletal: Musculoskeletal: Reports no additional musculoskeletal complaints, Denies numbness and Denies tingling Comments: left upper arm swelling / discharge Neurologic: Denies dizziness, Denies loss of vision, Denies numbness and Denies tingling Psychiatric: Psychiatric: Reports no additional psychiatric complaints Endocrine: Endocrine: Reports no additional endocrine complaints Hematologic/Lymphatic: Hematologic/Lymphatic: Reports no additional hematologic/lymphatic complaints Allergic/Immunologic: Allergic/Immunologic: Reports no additional allergic/immunologic complaints PMFSH Past Medical History Attestation statement: The following information was validated with the patient. Source: old records reviewed and nursing notes reviewed Medical History No known health problems Surgical History History of Family History Family History Mother Depression Social History Social History Alcohol intake: never Patient Tobacco Use Status: Never used Tobacco Advance Directives: No Advance Directives Information Provided: No service: No Current occupational status: unemployed Physical Exam ED Vital Signs: Vital Signs - 24 hr 05/06/23 11:00 Temperature 97.9 F Pulse Rate 96 Respiratory Rate 18 Blood Pressure 134/83 Pulse Oximetry 98 Oxygen Delivery Method Room Air BMI result Body Mass Index 49.2 Const General: cooperative, no acute distress, alert and awake Nutritional Appearance: well nourished Orientation/consciousness: patient oriented x3 Limitations: no limitations HENMT Head: Yes normal to inspection and Yes atraumatic Ears: hearing grossly normal bilaterally and external ears normal General nose exam: Normal external nose present, no nasal discharge noted and no epistaxis Face and sinus: Yes normal facial exam, No abrasion and No laceration Mouth: Normal oral and palatal mucosa present, no drooling and no muffled voice Eyes General: appearance normal, both eyes and all related structures Periorbital: periorbital findings normal Eyelids: Yes eyelids normal Conjunctivae: conjunctivae normal Pupils: Equal, round and reactive pupils present EOM: EOMs intact bilaterally Neck Neck: Yes normal visual inspection, Yes full ROM and Yes no lymphadenopathy Chest Chest palpation & inspection: normal inspection of the chest Resp Effort & Inspection: normal respiratory effort and able to speak in complete sentences GI Inspection: Yes normal to inspection Neuro General: patient oriented x3 and moves all extremities Cranial nerves: Yes Equal, round and reactive pupils present Cognition (Neuro): normal cognition Motor exam (neuro): 5/5 motor strength present throughout Sensory Exam: Normal double simultaneous stimulation for sensation Coordination: [id number] test normal Extrem General: Yes full ROM and Yes capillary refill normal Shoulder/upper arm images: 2 1. small open area with surrounding erythema and warmth, no fluctuance Psych Appearance: grossly normal Mental Status: mental status grossly normal Affect: normal affect Attitude: cooperative Thought process: Normal thought process present Thought content: Normal thought content present Insight: Good insight present (Psych) Medical Decision Making Medical Decision Making MDM Narrative: Patient is a 32 year old assigned female at with no reported medical history presenting to the emergency department today with left upper extremity discharge. Patient's physical exam showed a small open area on the upper left extremity with minimal surrounding erythema and warmth but no fluctuance. Patient's physical exam is consistent with a ruptured abscess. I explained my physical exam findings to the patient. I answered all questions asked by the patient. I stressed the importance of the patient taking her medication as prescribed. I stressed the importance of the patient following up with her primary care provider. I stressed the importance of the patient returning to the emergency department immediately if her symptoms were to worsen or if she were to develop any dizziness, shortness of breath, difficulty breathing, chest pain, blurry vision, loss of vision, nausea, vomiting, abdominal pain, fever, chills, back pain, or any other complaints. Patient verbalized agreement and understanding with this treatment plan and discharge. Differential Diagnosis Differential Diagnoses: The differential diagnosis associated with the presentation includes Abscess Cyst Cellulitis Prescription Management I considered prescription management with: Antibiotic (patient prescribed an antibiotic for her ruptured abscess / surrounding cellulitis) Discharge Plan Discharge Clinical Impression: Cellulitis Patient Disposition: Home, Self-Care Instructions: Cellulitis (DC) Additional Instructions: Follow up with your primary care provider. Return to the emergency department immediately if your symptoms worsen or if you develop any dizziness, shortness of breath, difficulty breathing, chest pain, blurry vision, loss of vision, nausea, vomiting, abdominal pain, fever, chills, back pain, or any other complaints. Prescriptions: New cefuroxime axetil 250 mg tablet 250 mg PO BID 7 Days Qty: 14 0RF No Action olanzapine 5 mg Tablet 5 mg PO DAILY lamotrigine 25 mg Tablet 25 mg PO DAILY Rx Instructions: TITRATE TO BID AFTER 1 WEEK. THEN INCREASE TO 3 TABLETS DAILY AFTER 3 WEEKS amoxicillin-pot clavulanate [Augmentin] 875-125 mg tablet 1 tab PO Q12H Qty: 16 0RF Referrals: Kyle Kaur MD [Primary Care Provider] - Stand Alone Forms: Work/School Release Interventions: ED Discharge Assessment Last Done: 05/06/23 11:15 Discharge Date/Time: 05/06/23 11:16 Print Language: French
== END 2023-05-06 11:16 | disposition home or self-care (01) ==
PROVIDERS: Emergency Provider Emergency Medicine; PCP Internal Medicine
DX: L03.114 Cellulitis of left upper limb (principal)
CPT/HCPCS: 99282; 99283

== ENCOUNTER 2023-05-25 16:51 | Emergency (ER) | payer OTHER, SELFPAY ==
--- NOTE | ~2023-05-25 | US_ITS ---
EXAMINATION: US RETROPERITONEAL LIMITED (RENAL ONLY) CLINICAL INFORMATION: Hematuria and left abdominal pain. COMPARISON: None available. TECHNIQUE: Real-time imaging of the kidneys. FINDINGS: RIGHT KIDNEY: 12.1 x 5.2 x 6 point cm (SAG x AP x TRV). The kidney is normal in size, contour, and echogenicity. Renal cortical thickness is normal. No calculi or focal parenchymal lesions. No hydronephrosis. LEFT KIDNEY: 13.6 x 4.9 x 6.0 cm (SAG x AP x TRV). The kidney is normal in size, contour, and echogenicity. Renal cortical thickness is normal. No calculi or focal parenchymal lesions. No hydronephrosis. US/US renal BI IMPRESSION: Unremarkable examination.
--- NOTE | ~2023-05-25 | US_ITS ---
EXAMINATION: US OBSTETRICAL ULTRASOUND CLINICAL INFORMATION: Abdominal pain. COMPARISON: None available. LMP: 05/16/2023. Gestational age by maternal dates is 1 weeks and 2 days. Estimated date of delivery by maternal dates is 02/20/2024. TECHNIQUE: Ultrasound of the maternal pelvis is performed using transabdominal and transvaginal transducers. Transvaginal imaging is performed due to inadequate visualization transabdominally. M-mode Doppler is also performed. FINDINGS: No gestational sac, yolk sac or pole is seen. There is no decidual reaction. There is no significant subchorionic hemorrhage or hematoma. MATERNAL ADNEXA: The right maternal ovary measures 3.7 x 1.9 x 1.8 cm. The left maternal ovary measures 4.4 x 3.2 x 3.2 cm. A left hydrosalpinx is questioned, measuring 3.8 x 1.2 x 1.4 cm There is no significant maternal adnexal mass. No maternal pelvic ascites. US/US OB pelvic and transvaginal IMPRESSION: 1. No intrauterine or decidual reaction is seen. 2. A 3.8 x 1.2 x 1.4 cm left adnexal ovoid simple cystic lesion is seen, which may represent a hydrosalpinx. An ectopic is a less likely differential consideration (10% association with ectopic ). There is no solid adnexal mass, tubal ring sign or ring of fire sign to suggest ectopic . There is no free fluid. Recommend clinical correlation, including correlation with serial beta hCG levels, together with follow-up ultrasound imaging as clinically indicated. Obstetrical evaluation is recommended. This critical result was discussed with TOM Salas at 9:45 PM on 05/25/2020. and it was ascertained that the content and urgency of this report was understood at the time of direct communication.
[2023-05-25 17:26] VITALS: BP 132/84; PULSE 88; RESP 17; TEMP 36.2; O2SAT 100; BMI 49.2
--- NOTE | 2023-05-25 17:27 | ED.ABDPAIN ---
HPI - Abdominal Pain General Chief Complaint: Abdominal Pain Stated Complaint: lower abd pain, bloody urine Time Seen by Provider: 05/25/23 20:26 Source: patient Mode of arrival: ambulatory Limitations: no limitations History of Present Illness HPI narrative: 32-year-old female history of obesity presenting to the emergency department with some difficulty with urination difficulty initiating stream, hematuria that started this morning, also reporting intermittent lower abdominal discomfort again started this morning. Denies changes in bowel habits, fevers, chills, nausea, vomiting, headache, vision changes, dizziness, weakness. Does not think she is . LMP 05/16 Related Data Home Medications Medication Instructions Recorded Confirmed lamotrigine 25 mg tablet 25 mg PO DAILY 06/05/21 06/05/21 olanzapine 5 mg tablet 5 mg PO DAILY 06/05/21 06/05/21 Previous Rx's Medication Instructions Recorded amoxicillin 875 mg-potassium 1 tab PO Q12H #16 tabs 06/06/21 clavulanate 125 mg tablet (Augmentin) cefuroxime axetil 250 mg tablet 250 mg PO BID 7 days #14 tabs 05/06/23 Allergies Allergy/AdvReac Type Severity Reaction Status Date / Time tomato Allergy Rash Verified 04/09/23 13:45 tomatoes Allergy Unknown Uncoded 04/09/23 13:45 Review of Systems Review of Systems Constitutional : No Weight loss, No Fever, No Chills, No Fatigue, No Malaise ENT/Mouth : No sore throat, No Rhinorrhea Eyes: No Eye Pain, No Swelling, No Redness Cardiovascular : No Chest Pain, No SOB, No Dyspnea on Exertion, No Orthopnea, No Edema, No Palpitations Respiratory : No Cough, No Sputum, No Wheezing Gastrointestinal : No Nausea, No Vomiting, No Diarrhea, No Constipation, + abdominal Pain, No Hematochezia, No Melena Genitourinary : No Dysuria, No Urinary Frequency, + Hematuria, Musculoskeletal : No joint pain, No Myalgias, No Joint Swelling Skin : No Skin Lesions, No rash Neuro : No Weakness, No Numbness, No Dizziness, No Headache Psych : No Anxiety/Panic, No Depression Heme/Lymph: No Bruising, No Bleeding,No Lymphadenopathy Endocrine : No Polyuria, No Polydipsia All other systems reviewed and are negative Yes all other systems are reviewed and are negative [facility] Past Medical History Attestation statement: The following information was validated with the patient. Source: old records reviewed and nursing notes reviewed Medical History No known health problems Surgical History History of Family History Family History Mother Depression Social History Social History Alcohol intake: never Patient Tobacco Use Status: Never used Tobacco Smoked in Last 30 Days: No Use of substances other than those prescribed or required for medical reasons: No Advance Directives: No Advance Directives Information Provided: Yes Patient : Yes service: No Current occupational status: unemployed Physical Exam ED Vital Signs: Vital Signs - 24 hr 05/25/23 17:26 05/25/23 21:19 Temperature 97.1 F 98.3 F Pulse Rate 88 94 Respiratory Rate 17 18 Blood Pressure 132/84 129/74 Pulse Oximetry 100 100 Oxygen Delivery Method Room Air Room Air BMI result Body Mass Index 49.2 vss Appearance: Alert.? Oriented X3.? No acute distress.? Head: Normocephalic, atraumatic, no step-offs or deformities Eyes: Pupils equal, round and reactive to light.?? CVS: Normal heart rate and rhythm.? Pulses normal.? Respiratory: No respiratory distress.? Breath sounds normal.? Abdomen: Soft and non tender. Normo active bowel sounds throughout ? Skin: Skin warm and dry.? Normal skin color.? Normal skin turgor.? Extremities: No lower extremity edema.? No calf ttp. 5/5 strength to bilateral upper and lower extremities Back: No midline tenderness, no C-spine tenderness, full range of motion, no CVA tenderness bilaterally Neuro: Oriented X 3.? No motor deficit.? No sensory deficit. CN 2-12 intact Course Course Course Narrative: This is a rapid medical exam. Deferred additional HPI, ROS, PE to primary provider. 32 yo female with no known medical history here with complaints of left sided abdominal pain which radiates across since yesterday with urinary urgency, hematuria and having nausea. Pain is intermittent in nature. No vomiting, diarrhea. LMP 05/16 Will obtain labs, UA VSS Reevaluation(s) Reevaluation #1: CBC with slight leukopenia. Appears to be around patient's baseline. Chemistry no acute findings requiring intervention. Beta hCG 501 patient is about 4-5 weeks . Will obtain ultrasound for further evaluation of this. Time: 20:50 Reevaluation #2: Discussed this case with Dr. Henderson patient has two options: 1. Expectant- repeat HCG in 48 hours and follow up in the office in 48 hours. Strict return precautions Vs 2. Methotrexate- can cause miscarriage. Early tx for ectopic Time: 21:53 Reevaluation #3: Patient would like expectant management. I made Dr. Henderson be aware of this. He he would like patient to come back to the emergency department on Saturday for repeat hCG and follow-up with ultrasound. Patient made aware of this. She states she will buy vitamins from the pharmacy. I did have a long conversation with her about strict return precaution, verbalizes understanding. Educated patient on diagnosis and treatment plan, answered all question, patient verbalizes understanding. At this time patient will be discharged home, advised to return with new or worsening symptoms. Educated on worrisome signs and symptoms and when to return. At this time I feel comfortable discharge home. Time: 22:19 Medical Decision Making Medical Decision Making [facility] Narrative: 32-year-old female presents with difficulty with urination, hematuria and lower abdominal discomfort that is intermittent in nature started this morning. Physical exam benign History and physical exam concerning for UTI versus cystitis versus kidney stone. Unlikely acute abdomen, appendicitis, cholecystitis, pancreatitis, diverticulitis, obstruction. Will rule out metabolic derangements, anemia in . History and physical exam less likely ectopic or ovarian torsion Plan at this time labs, imaging, urine. Differential Diagnosis Differential Diagnoses: The differential diagnosis associated with the presentation includes History and physical exam concerning for UTI versus cystitis versus kidney stone. Unlikely acute abdomen, appendicitis, cholecystitis, pancreatitis, diverticulitis, obstruction. Will rule out metabolic derangements, anemia in . History and physical exam less likely ectopic or ovarian torsion Admission/Observation Consideration of admission/observation: Escalation of care including admission/observation considered Unlikely Lab Data [facility] Lab Attestation statement: I reviewed the patient's lab results. 05/25/23 18:05 05/25/23 18:05 Labs: Lab Results 05/25/23 Range/Units 18:05 WBC 4.4 L (4.8-10.8) X10*3/uL RBC 4.72 (4.20-5.50) X10*6/uL Hgb 13.1 (12.0-16.0) g/dl Hct 40.9 (37.0-47.0) % MCV 86.7 (80.0-98.0) fL MCH 27.8 (27.0-33.0) pg MCHC 32.0 (31.0-35.0) g/dl RDW 13.2 (11.0-16.0) % Plt Count 221 (160-400) X10*3/uL MPV 8.7 L (9.4-12.3) fL Immature Gran % (Auto) 0.2 (0.0-0.4) % Neut % (Auto) 53.1 (45-73) % Lymph % (Auto) 38.5 (20-40) % [place] % (Auto) 5.9 (2-11) % Eos % (Auto) 1.6 (0-4) % Baso % (Auto) 0.7 (0-2) % Lymph # (Auto) 1.7 (1.2-4.9) X10*3/uL [place] # (Auto) 0.3 (0.1-1.2) X10*3/uL Eos # (Auto) 0.1 (0.0-0.4) X10*3/uL Baso # (Auto) 0.0 (0.0-0.2) X10*3/uL Abs Immat Gran (auto) 0.01 (0.00-0.03) X10*3/uL Absolute Neuts (auto) 2.3 (2.0-8.3) x10*3/uL Absolute Nucleated RBC 0.000 (0.0-0.012) X10*3/uL Nucleated RBC % (auto) 0.0 (0.0-0.2) /100WBC Sodium 141 (135-145) mmol/L Potassium 4.0 (3.3-5.1) mmol/L Chloride 107 (96-108) mmol/L Carbon Dioxide 25 (22-29) mmol/L Anion Gap 13 (12-20) BUN 7 L (9-16) mg/dL Creatinine 0.69 (0.5-1.4) mg/dL Estim Creat Clear Calc 155.2 Estimated GFR > 60 Random Glucose 109 (60-115) mg/dL Calcium 9.3 (8.4-10.2) mg/dL Total Bilirubin 0.5 (0.0-1.0) mg/dL Direct Bilirubin 0.2 (0.0-0.5) mg/dL AST 27 (5-31) U/L ALT 35 H (0-31) U/L Alkaline Phosphatase 64 (39-117) U/L Total Protein 7.8 (6.5-8.0) g/dL Albumin 4.2 (3.5-5.0) g/dL Beta HCG, Quant 501 mIU/mL Urine Color Dark Yellow Urine Appearance Turbid Urine pH 5.5 (5.0-9.0) Ur Specific [place] >= 1.030 H (1.005-1.025) Urine Protein 30 (1+) H (Neg-Trace) mg/dL Urine Glucose (UA) Negative (Negative) mg/dL Urine Ketones Trace (Negative) mg/dL Urine Blood Large (3+) H (Negative) Urine Nitrite Negative (Negative) Ur Leukocyte Esterase Small (1+) H (Negative) Urine RBC >20 H (0-2) /HPF Urine WBC 11-20 H (0-5) /HPF Ur Squamous Epith Cells >20 (0-2) /HPF Urine Bacteria 4+ (None Seen) Hyaline Casts 3-5 (0-2) /LPF Urine Test POSITIVE H (NEGATIVE) Independent Interpretation I performed an independent interpretation of an: Ultrasound Radiology Impression Discussion of test interpretation with radiology: I have reviewed the radiologist's reading. External Record Review External record reviewed: Inpatient record, Office record, Outpatient record, Prior outpatient labs, Prior outpatient radiology and Primary care record Critical Care Time Critical Care Time Critical Care Time: Yes Total Critical Care Time: 45 Attestation: I attest to this time spent taking care of the patient, obtaining history, physical, reviewing labs, imaging, speaking to my attending, speaking to specialist. Discharge Plan Discharge Clinical Impression: Abdominal pain, UTI (urinary tract infection), Elevated serum hCG Patient Disposition: Home, Self-Care Instructions: Abdominal Pain (ED), Urinary Tract Infection in (ED) Additional Instructions: Take your medications as prescribed. If you were prescribed antibiotics today, it is important that you take your medication to their entirety, do not skip any doses, do not finish them early. Follow-up with your primary care provider this week. Call OBGYN office to schedule an appointment as soon as possible preferably within the next 1-3 days. Return to the emergency department with new or worsening symptoms. Such as fevers, chills, chest pain, shortness of breath, nausea, vomiting, dizziness, headache, vision changes, lethargy In case of emergency call 911 RIGHT KIDNEY: 12.1 x 5.2 x 6 point cm (SAG x AP x TRV). The kidney is normal in size, contour, and echogenicity. Renal cortical thickness is normal. No calculi or focal parenchymal lesions. No hydronephrosis. LEFT KIDNEY: 13.6 x 4.9 x 6.0 cm (SAG x AP x TRV). The kidney is normal in size, contour, and echogenicity. Renal cortical thickness is normal. No calculi or focal parenchymal lesions. No hydronephrosis. US/US renal BI IMPRESSION: Unremarkable examination. US/US OB pelvic and transvaginal IMPRESSION: 1. No intrauterine or decidual reaction is seen. 2. A 3.8 x 1.2 x 1.4 cm left adnexal ovoid simple cystic lesion is seen, which may represent a hydrosalpinx. An ectopic is a less likely differential consideration (10% association with ectopic ). There is no solid adnexal mass, tubal ring sign or ring of fire sign to suggest ectopic . There is no free fluid. Recommend clinical correlation, including correlation with serial beta hCG levels, together with follow-up ultrasound imaging as clinically indicated. Obstetrical evaluation is recommended. Your beta hCG level was 501, you must have an hCG level drawn in 48 hours. So they can trended. You should also follow-up with OBGYN doctor as soon as possible but within 1-3 days. Return with any new or worsening pain, vaginal bleeding, nausea, vomiting, fevers, chills, bleeding through more than 2 pads an hour. Take over the counter vitamins Come back to the emergency department Saturday for repeat hCG and follow-up ultrasound Prescriptions: No Action olanzapine 5 mg Tablet 5 mg PO DAILY lamotrigine 25 mg Tablet 25 mg PO DAILY Rx Instructions: TITRATE TO BID AFTER 1 WEEK. THEN INCREASE TO 3 TABLETS DAILY AFTER 3 WEEKS amoxicillin-pot clavulanate [Augmentin] 875-125 mg tablet 1 tab PO Q12H Qty: 16 0RF cefuroxime axetil 250 mg tablet 250 mg PO BID 7 Days Qty: 14 0RF Referrals: Physician,Jose J [Primary Care Provider] - 2 days Terrance Henderson MD [Physician] - 1 day Stand Alone Forms: Work/School Release
[2023-05-25 18:10] LABS: MANUAL DIFF FLAG NO
[2023-05-25 18:12] LABS: Basophils Percent Auto 0.7 % (0-2); Eosinophils Absolute Auto 0.1 X10*3/uL (0.0-0.4); Eosinophils Percent Auto 1.6 % (0-4); Hematocrit 40.9 % (37.0-47.0); Hemoglobin 13.1 g/dl (12.0-16.0); Imm Gran Abs Auto 0.01 X10*3/uL (0.00-0.03); Imm Gran Pct Auto 0.2 % (0.0-0.4); Lymphocytes Absolute Auto 1.7 X10*3/uL (1.2-4.9); Lymphocytes Percent Auto 38.5 % (20-40); Mean Corpuscular Hemoglobin 27.8 pg (27.0-33.0); Mean Corpuscular Volume 86.7 fL (80.0-98.0); Mean Platelet Volume 8.7 fL (9.4-12.3); Monocytes Absolute Auto 0.3 X10*3/uL (0.1-1.2); Monocytes Percent Auto 5.9 % (2-11); Neutrophils Absolute Auto 2.3 x10*3/uL (2.0-8.3); Neutrophils Percent Auto 53.1 % (45-73); Platelet Count 221 X10*3/uL (160-400); Red Blood Count 4.72 X10*6/uL (4.20-5.50); Red Cell Distribution Width 13.2 % (11.0-16.0); White Blood Count 4.4 X10*3/uL (4.8-10.8)
[2023-05-25 18:13] LABS: Appearance Urine Turbid; Color Urine Dark Yellow; Glucose Urine UA Negative (Negative); Leukocyte Esterase Urine Small (1+) (Negative); Nitrite Urine Negative (Negative); PH 5.5 (5.0-9.0); Specific Gravity - Urine >= 1.030 (1.005-1.025); UMIC TRIGGER UACC YES; Urine Blood Large (3+) (Negative); Urine Ketones Trace mg/dL (Negative); Urine Protein 30 (1+) mg/dL (Neg-Trace)
[2023-05-25 18:15] LABS: UPreg QC Valid YES; Urine Pregnancy POSITIVE (NEGATIVE)
[2023-05-25 18:25] LABS: Alanine Aminotransferase 35 U/L (0-31); Albumin Level 4.2 g/dL (3.5-5.0); Alkaline Phosphatase 64 U/L (39-117); Anion Gap 13 (12-20); Aspartate Amino Transferase 27 U/L (5-31); Bilirubin Direct 0.2 mg/dL (0.0-0.5); Bilirubin Total 0.5 mg/dL (0.0-1.0); Blood Urea Nitrogen 7 mg/dL (9-16); Calcium 9.3 mg/dL (8.4-10.2); Carbon Dioxide 25 mmol/L (22-29); Chloride 107 mmol/L (96-108); Creatinine Clr Calc Pharmacy 155.2; Estimated Glomerular Filt Rate > 60; Glucose Random 109 mg/dL (60-115); Sodium 141 mmol/L (135-145); Total Protein 7.8 g/dL (6.5-8.0)
[2023-05-25 18:27] LABS: Bacteria Urine 4+ (None Seen); RBC Urine >20 /HPF (0-2); Squamous Epithelial Cell Urine >20 /HPF (0-2); UACC Culture Trigger YES
[2023-05-25 18:46] LABS: HCG Quantitative 501 mIU/mL
[2023-05-25 21:19] VITALS: BP 129/74; PULSE 94; RESP 18; TEMP 36.8; O2SAT 100
--- NOTE | 2023-05-25 21:23 | PC.NURSE ---
pt from home, a&ox4, respirations even and unlabored. pt reporting onset of left upper abdominal pain that is now radiating across the upper abdomen. pt reports the pain subsides at rest, reports the pain increases when moving or urinating. pt denies n/v/d. denies any urinary problems. pt report regular po intake. pt vss.
--- NOTE | 2023-05-25 22:34 | PM.GYNCN ---
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 Denies changes in bowel habits, fevers, chills, nausea, vomiting, headache, vision changes, dizziness, weakness. Does not think she is . LMP 05/16. HCG was 501 cc:: CC: OB PMF Past Medical History Medical History No known health problems Family History Family History Mother Depression Surgical History Surgical History History of Social History Social History Alcohol intake: never Patient Tobacco Use Status: Never used Tobacco Smoked in Last 30 Days: No Use of substances other than those prescribed or required for medical reasons: No Advance Directives: No Advance Directives Information Provided: Yes Patient : Yes service: No Current occupational status: unemployed Meds Allergies Allergy/AdvReac Type Severity Reaction Status Date / Time tomato Allergy Rash Verified 04/09/23 13:45 tomatoes Allergy Unknown Uncoded 04/09/23 13:45 Home Medications Medication Instructions Recorded Confirmed Last Taken Type lamotrigine 25 mg tablet 25 mg PO DAILY 06/05/21 06/05/21 06/03/21 History olanzapine 5 mg tablet 5 mg PO DAILY 06/05/21 06/05/21 06/03/21 History [employer] Physical Exam Vitals Vital signs: Temp Pulse Resp BP Pulse Ox O2 Del Method 98.3 F 94 18 129/74 100 Room Air 05/25/23 21:19 05/25/23 21:19 05/25/23 21:19 05/25/23 21:19 05/25/23 21:19 05/25/23 21:19 BMI result Body Mass Index 49.2 Additional Comments: Abdominal exam according TOM Babcock reported as the following: Soft and non tender. Normo active bowel sounds throughout ? [employer] - Results Labs 05/25/23 18:05 05/25/23 18:05 Labs: Short CBC 05/25/23 Range/Units 18:05 WBC 4.4 L (4.8-10.8) X10*3/uL Hgb 13.1 (12.0-16.0) g/dl Hct 40.9 (37.0-47.0) % Plt Count 221 (160-400) X10*3/uL BMP 05/25/23 18:05 Sodium 141 Potassium 4.0 Chloride 107 Carbon Dioxide 25 BUN 7 L Creatinine 0.69 Calcium 9.3 Liver Function 05/25/23 Range/Units 18:05 Total Bilirubin 0.5 (0.0-1.0) mg/dL Direct Bilirubin 0.2 (0.0-0.5) mg/dL AST 27 (5-31) U/L ALT 35 H (0-31) U/L Alkaline Phosphatase 64 (39-117) U/L Albumin 4.2 (3.5-5.0) g/dL Urine 05/25/23 Range/Units 18:05 Urine Color Dark Yellow Urine Appearance Turbid Urine pH 5.5 (5.0-9.0) Ur Specific [place] >= 1.030 H (1.005-1.025) Urine Protein 30 (1+) H (Neg-Trace) mg/dL Urine Glucose (UA) Negative (Negative) mg/dL Urine Test POSITIVE H (NEGATIVE) Imaging US - abdomen: Radiologist's impression: ITS Impressions Pelvic/Transvag US 05/25/23 19:38 IMPRESSION: 1. No intrauterine or decidual reaction is seen. 2. A 3.8 x 1.2 x 1.4 cm left adnexal ovoid simple cystic lesion is seen, which may represent a hydrosalpinx. An ectopic is a less likely differential consideration (10% association with ectopic ). There is no solid adnexal mass, tubal ring sign or ring of fire sign to suggest ectopic . There is no free fluid. Recommend clinical correlation, including correlation with serial beta hCG levels, together with follow-up ultrasound imaging as clinically indicated. Obstetrical evaluation is recommended. This critical result was discussed with TOM Salas at 9:45 PM on 05/25/2020. and it was ascertained that the content and urgency of this report was understood at the time of direct communication. Renal Ultrasound 05/25/23 19:48 IMPRESSION: Unremarkable examination. Assessment and Plan (1) Early stage of : Status: Acute Recommended to TOM Stone in the emergency room the following: Discussed with the patient the differential diagnosis which includes either early ectopic versus early SAB versus normal intrauterine gestation. Options of treatment to be discussed with the patient should include: 1- Expected management for the coming 48 hours and repeat HCG with or without pelvic Ultrasound. 2- Treat as if she has tubal with methotrexate All the pros and cons and risks and benefits of each treatment to be discussed with the patient. 1-The advantage of expectant management to be discussed with the patient, being prevention of possible exposure to teratogenicity or risk of spontaneous in case of an early normal , the risk being delayed diagnosis and treatment of ectopic and possible rupture with all its possible consequences including intra-abdominal bleed and possible . 2-Furthermore discussed with the patient the observation option is treatment with methotrexate . The advantage of early treatment of presumed tubal with methotrexate to be discussed with the patient, includes but not limited to reducing the risk of ruptured ectopic with all its potential consequences, in addition , discuss with the patient that methotrexate treatment risks including but not limited to, possible exposure to methotrexate to a normal intra and and increase the risk of spontaneous and congenital anomalies. The patient decided to wait 48 hours repeat HCG and treat accordingly. Instructions to be given to the patient to the importance of compliance and timely HCG follow-up /repeat pelvic ultrasound in the the emergency room in 48 hours for an early and accurate diagnosis, and to call or go to the emergency room if pain or vaginal bleeding occurs, all questions answered, the patient verbalized understanding and agreed with the plan. Follow-up in 48 hours in the emergency room for further management. I spent a total of 20 minutes reviewing the chart, talking to the emergency room provider and documenting in the medical record.
== END 2023-05-25 23:05 | disposition home or self-care (01) ==
PROVIDERS: Nurse Practitioner Family; Emergency Provider Internal Medicine
DX: N39.0 Urinary tract infection, site not specified (principal); R10.30 Lower abdominal pain, unspecified; R39.198 Other difficulties with micturition; R31.9 Hematuria, unspecified; D72.819 Decreased white blood cell count, unspecified; Z32.00 Encounter for pregnancy test, result unknown
CPT/HCPCS: 36415; 76775; 76801; 76817; 80048; 80076; 81001; 81025; 84702; 85025; 86900; 86901; 87086; 99284

== ENCOUNTER 2023-05-26 17:18 | Emergency (ER) | payer OTHER, SELFPAY ==
[2023-05-26 17:29] VITALS: BP 136/77; PULSE 87; RESP 16; TEMP 36.7; O2SAT 98; BMI 50.7
--- NOTE | 2023-05-26 17:31 | ED.ABDPAIN ---
HPI - Abdominal Pain General Chief Complaint: Recheck/Abnormal Lab/Rx Stated Complaint: recheck labs seen here 05/25 Time Seen by Provider: 05/26/23 18:49 Source: patient Mode of arrival: ambulatory Limitations: no limitations History of Present Illness HPI narrative: 32-year-old female who is currently who was seen in our emergency room yesterday and diagnosed with early although no intrauterine was seen on US and had a quant of 505 presents to the ER for follow-up hcg levels per OB consult yesterday. Patient denies any current complaints. She has no abdominal pain or vaginal bleeding. Of note, patient has a UTI noted on her urinalysis from yesterday. Her urine culture is pending. She has not received treatment for this. Related Data Home Medications Medication Instructions Recorded Confirmed lamotrigine 25 mg tablet 25 mg PO DAILY 06/05/21 06/05/21 olanzapine 5 mg tablet 5 mg PO DAILY 06/05/21 06/05/21 Previous Rx's Medication Instructions Recorded amoxicillin 875 mg-potassium 1 tab PO Q12H #16 tabs 06/06/21 clavulanate 125 mg tablet (Augmentin) cefuroxime axetil 250 mg tablet 250 mg PO BID 7 days #14 tabs 05/06/23 cefuroxime axetil 500 mg tablet 500 mg PO BID #14 tabs 05/26/23 Allergies Allergy/AdvReac Type Severity Reaction Status Date / Time tomato Allergy Rash Verified 04/09/23 13:45 tomatoes Allergy Unknown Uncoded 04/09/23 13:45 Review of Systems Review of Systems Yes all other systems are reviewed and are negative Constitutional: Reports no additional constitutional complaints, Denies body ache(s), Denies chills, Denies fever(s), Denies headache(s) and Denies weakness Eyes: Reports no additional eye complaints and Denies change in vision Reports system reviewed and no additional complaints, except as documented, Denies dizziness, Denies headache(s), Denies nasal congestion, Denies nasal discharge and Denies neck pain Cardiovascular: Reports no additional cardiovascular complaints, Denies chest pain, Denies leg edema and Denies dyspnea Respiratory: Reports no additional respiratory complaints, Denies cough and Denies dyspnea Gastrointestinal: Reports no additional gastrointestinal complaints, Denies abdominal pain, Denies diarrhea, Denies nausea and Denies vomiting Genitourinary: Reports no additional female genitourinary complaints and Denies urinary incontinence Musculoskeletal: Reports no additional musculoskeletal complaints, Denies back pain, Denies arthralgias, Denies joint swelling, Denies neck pain, Denies numbness and Denies tingling Skin/Breast: Reports system reviewed and no additional complaints, except as docu and Denies rash Reports system reviewed and no additional complaints, except as documented, Denies Abnormal speech present, Denies dizziness, Denies headache(s), Denies numbness, Denies tingling and Denies weakness PMFSH Past Medical History Attestation statement: The following information was validated with the patient. Source: old records reviewed and nursing notes reviewed Medical History No known health problems Surgical History History of Family History Family History Mother Depression Social History Social History Alcohol intake: never Patient Tobacco Use Status: Never used Tobacco Smoked in Last 30 Days: No Use of substances other than those prescribed or required for medical reasons: No Advance Directives: No Advance Directives Information Provided: No Patient : Yes service: No Current occupational status: unemployed Physical Exam ED Vital Signs: Vital Signs - 24 hr 05/26/23 17:29 Temperature 98.1 F Pulse Rate 87 Respiratory Rate 16 Blood Pressure 136/77 Pulse Oximetry 98 Oxygen Delivery Method Room Air BMI result Body Mass Index 50.7 Const General: cooperative, healthy appearing, comfortable and no acute distress Orientation/consciousness: patient oriented x3 Limitations: no limitations HENMT Head: Yes normal to inspection Ears: hearing grossly normal bilaterally General nose exam: Normal external nose present Face and sinus: Yes normal facial exam Mouth: Normal oral and palatal mucosa present Throat: Yes posterior oropharynx normal Eyes General: appearance normal, both eyes and all related structures Pupils: Equal, round and reactive pupils present Neck Neck: Yes normal visual inspection Chest Chest palpation & inspection: normal inspection of the chest Resp Effort & Inspection: normal respiratory effort Auscultation: clear to auscultation bilaterally Cardio Rate: regular rate Rhythm: regular rhythm Peripheral pulses: Peripheral pulses 2+ throughout GI Inspection: Yes normal to inspection Palpation (GI): Soft to palpation and nontender Auscultation: normal bowel sounds Back/Spine/Pelvis Thoracic/Lumbar Spine: thoracic and lumbar spine normal to inspection Skin General skin exam: no rashes or lesions noted Neuro General: patient oriented x3, no focal motor deficits and normal sensation to monofilament Cranial nerves: Yes Equal, round and reactive pupils present Cognition (Neuro): normal cognition Speech: No Abnormal speech present Gait exam (Neuro): Normal gait present Motor exam (neuro): 5/5 motor strength present throughout Extrem General: Yes normal to inspection Course Course Course Narrative: This is a rapid medical exam. Deferred additional HPI, ROS, PE to primary provider. 32 yo female here for repeat HCG and ?US after ER visit yesterday diagnosed with early . Currently denies pain or bleeding. Of note, had UTI yesterday and not treated, will need abx Labs ordered. VSS Medical Decision Making Medical Decision Making [facility] Narrative: 32-year-old female who is currently who was seen in our emergency room yesterday and diagnosed with early although no intrauterine was seen on US and had a quant of 505 presents to the ER for follow-up hcg levels per OB consult yesterday. Patient denies any current complaints. She has no abdominal pain or vaginal bleeding. Of note, patient has a UTI noted on her urinalysis from yesterday. Her urine culture is pending. She has not received treatment for this. Patient nontoxic appearing. Vitals are stable. No focal abdominal pain. Will send hCG, consult Ob Differential Diagnosis Differential Diagnoses: The differential diagnosis associated with the presentation includes Early , ectopic , miscarriage Admission/Observation Consideration of admission/observation: Escalation of care including admission/observation considered Beta quant is 665-discussed with OB, see discussion below no need for admission Consult Healthcare Provider Management of the patient was discussed with: Vocational Rehabilitation Counselor Spoke to Dr. Henderson from Ob-recommended repeat hCG tomorrow morning, and follow-up with Ob. Lab Data [facility] Lab Attestation statement: I reviewed the patient's lab results. HCG 665 05/26/23 18:24 05/26/23 18:24 Labs: Lab Results 05/26/23 Range/Units 18:24 WBC 4.9 (4.8-10.8) X10*3/uL RBC 4.61 (4.20-5.50) X10*6/uL Hgb 12.9 (12.0-16.0) g/dl Hct 40.6 (37.0-47.0) % MCV 88.1 (80.0-98.0) fL MCH 28.0 (27.0-33.0) pg MCHC 31.8 (31.0-35.0) g/dl RDW 13.5 (11.0-16.0) % Plt Count 243 (160-400) X10*3/uL MPV 9.2 L (9.4-12.3) fL Immature Gran % (Auto) 0.2 (0.0-0.4) % Neut % (Auto) 58.7 (45-73) % Lymph % (Auto) 32.2 (20-40) % Weakley % (Auto) 7.1 (2-11) % Eos % (Auto) 1.2 (0-4) % Baso % (Auto) 0.6 (0-2) % Lymph # (Auto) 1.6 (1.2-4.9) X10*3/uL Weakley # (Auto) 0.4 (0.1-1.2) X10*3/uL Eos # (Auto) 0.1 (0.0-0.4) X10*3/uL Baso # (Auto) 0.0 (0.0-0.2) X10*3/uL Abs Immat Gran (auto) 0.01 (0.00-0.03) X10*3/uL Absolute Neuts (auto) 2.9 (2.0-8.3) x10*3/uL Absolute Nucleated RBC 0.000 (0.0-0.012) X10*3/uL Nucleated RBC % (auto) 0.0 (0.0-0.2) /100WBC Sodium 141 (135-145) mmol/L Potassium 4.1 (3.3-5.1) mmol/L Chloride 107 (96-108) mmol/L Carbon Dioxide 26 (22-29) mmol/L Anion Gap 12 (12-20) BUN 6 L (9-16) mg/dL Creatinine 0.72 (0.5-1.4) mg/dL Estim Creat Clear Calc 151.6 Estimated GFR > 60 Random Glucose 97 (60-115) mg/dL Calcium 9.3 (8.4-10.2) mg/dL Beta HCG, Quant 665 mIU/mL Independent Historian Clinical information obtained from an independent historian. History obtained from or confirmed by: Spouse External Record Review External record reviewed: Prior outpatient labs, Prior outpatient radiology and Outside ED record Tests considered The following testing was considered but not selected: no need for US today per OB Prescription Management I considered prescription management with: Antibiotic Medications Administered Discontinued Medications Generic Name Dose Route Start Last Admin Trade Name Freq PRN Reason Stop Dose Admin Cefuroxime Axetil 500 mg 05/26/23 19:01 05/26/23 19:07 Cefuroxime Axetil 500 Mg Tablet PO 05/26/23 19:02 500 mg ONCE ONE Administration Discharge Plan Discharge Clinical Impression: Early stage of , UTI (urinary tract infection) Patient Disposition: Home, Self-Care Instructions: (ED), Urinary Tract Infection in (ED) Additional Instructions: Go to the lab tomorrow morning to have your hormone level drawn. Called the OBGYN to make an appointment. Return for any bleeding or pain. Take the antibiotics as prescribed Prescriptions: New cefuroxime axetil 500 mg tablet 500 mg PO BID Qty: 14 0RF No Action olanzapine 5 mg Tablet 5 mg PO DAILY lamotrigine 25 mg Tablet 25 mg PO DAILY Rx Instructions: TITRATE TO BID AFTER 1 WEEK. THEN INCREASE TO 3 TABLETS DAILY AFTER 3 WEEKS amoxicillin-pot clavulanate [Augmentin] 875-125 mg tablet 1 tab PO Q12H Qty: 16 0RF cefuroxime axetil 250 mg tablet 250 mg PO BID 7 Days Qty: 14 0RF Referrals: Terrance Henderson MD [Physician] - 1 week Interventions: ED Discharge Assessment Last Done: 05/26/23 19:11 Discharge Date/Time: 05/26/23 19:11
[2023-05-26 18:29] LABS: MANUAL DIFF FLAG NO
[2023-05-26 18:50] LABS: Anion Gap 12 (12-20); Blood Urea Nitrogen 6 mg/dL (9-16); Calcium 9.3 mg/dL (8.4-10.2); Carbon Dioxide 26 mmol/L (22-29); Chloride 107 mmol/L (96-108); Creatinine Clr Calc Pharmacy 151.6; Estimated Glomerular Filt Rate > 60; Glucose Random 97 mg/dL (60-115); Potassium 4.1 mmol/L (3.3-5.1); Sodium 141 mmol/L (135-145)
[2023-05-26 18:51] LABS: HCG Quantitative 665 mIU/mL
[2023-05-26 18:52] LABS: Basophils Percent Auto 0.6 % (0-2); Eosinophils Absolute Auto 0.1 X10*3/uL (0.0-0.4); Eosinophils Percent Auto 1.2 % (0-4); Hematocrit 40.6 % (37.0-47.0); Hemoglobin 12.9 g/dl (12.0-16.0); Imm Gran Abs Auto 0.01 X10*3/uL (0.00-0.03); Imm Gran Pct Auto 0.2 % (0.0-0.4); Lymphocytes Absolute Auto 1.6 X10*3/uL (1.2-4.9); Lymphocytes Percent Auto 32.2 % (20-40); Mean Corpuscular HGB Conc 31.8 g/dl (31.0-35.0); Mean Corpuscular Volume 88.1 fL (80.0-98.0); Mean Platelet Volume 9.2 fL (9.4-12.3); Monocytes Absolute Auto 0.4 X10*3/uL (0.1-1.2); Monocytes Percent Auto 7.1 % (2-11); Neutrophils Absolute Auto 2.9 x10*3/uL (2.0-8.3); Neutrophils Percent Auto 58.7 % (45-73); Platelet Count 243 X10*3/uL (160-400); Red Blood Count 4.61 X10*6/uL (4.20-5.50); Red Cell Distribution Width 13.5 % (11.0-16.0); White Blood Count 4.9 X10*3/uL (4.8-10.8)
[2023-05-26] MEDS: cefuroxime axetiL 500 MG TABLET PO (19:07)
== END 2023-05-26 19:11 | disposition home or self-care (01) ==
PROVIDERS: Nurse Practitioner Family; Emergency Provider Emergency Medicine
DX: O23.41 Unspecified infection of urinary tract in pregnancy, first trimester (principal); N39.0 Urinary tract infection, site not specified; Z3A.00 Weeks of gestation of pregnancy not specified
CPT/HCPCS: 36415; 80048; 84702; 85025; 99283

== ENCOUNTER 2023-05-27 10:20 | Outpatient (REF) | payer OTHER, SELFPAY ==
[2023-05-27 11:29] LABS: HCG Quantitative 711 mIU/mL
== END 2023-05-27 10:21 | disposition home or self-care (01) ==
LOC: HO.LAB 10:20
PROVIDERS: Visit Provider Obstetrics & Gynecology
DX: Z34.90 Encounter for supervision of normal pregnancy, unspecified, unspecified trimester (principal)
CPT/HCPCS: 36415; 84702; 99212

== ENCOUNTER 2023-05-27 12:39 | Outpatient (REF) | payer OTHER, SELFPAY ==
--- NOTE | ~2023-05-27 | US_ITS ---
EXAMINATION: US OBSTETRICAL ULTRASOUND CLINICAL INFORMATION: Follow-up . COMPARISON: 05/25/2023 LMP: 05/16/2023. Gestational age by maternal dates is 1 week 4 days. Estimated date of delivery by maternal dates is 02/20/2024. TECHNIQUE: Transabdominal and transvaginal imaging of the pelvis was performed. FINDINGS: The uterus is anteverted. Uterine echotexture is heterogeneous. The uterus measures 10.8 x 4.4 x 4.8 cm transabdominally. The endometrial stripe measures 0.7 cm in thickness. Cervical nabothian cysts are present. The cervix is closed. Trace free fluid in pelvis. No gestational sac, yolk sac or pole is seen. There is no decidual reaction. There is no significant subchorionic hemorrhage or hematoma. MATERNAL ADNEXA: The right maternal ovary measures 2.1 x 1.8 x 1.9 cm. The left maternal ovary measures 2.8 x 1.8 x 2.6 cm. Tubular fluid-filled structure in the left adnexa measures 2.9 x 1.2 x 1.5 cm and is best identified transabdominally. US/US OB pelvic and transvaginal IMPRESSION: 1. No intrauterine or decidual reaction is seen. 2. A 2.9 x 1.2 x 1.5 cm left adnexal tubular fluid-filled fracture is again seen, which may represent a hydrosalpinx. There is trace free fluid in the pelvis. Recommend correlation with quantitative beta hCG levels. Obstetrical evaluation should be considered.
== END 2023-05-27 12:40 | disposition home or self-care (01) ==
LOC: HO.US 12:39
PROVIDERS: Visit Provider Obstetrics & Gynecology
DX: Z34.91 Encounter for supervision of normal pregnancy, unspecified, first trimester (principal); Z3A.01 Less than 8 weeks gestation of pregnancy
CPT/HCPCS: 76801; 76817

== ENCOUNTER 2023-05-27 13:26 | Outpatient (AMB) | payer OTHER, SELFPAY ==
--- NOTE | 2023-05-27 13:32 | A.OFFVIS_ITS ---
Intake Vital Signs 05/27/23 13:36 Height 5 ft 4 in BP 126/70 Intake Visit Reasons: Er follow up Business Partner Required: No Information Interpreted: non-clinical & clinical Young Adult Librarian: Young Adult Librarian Present (Lis CHIANG) Accompanied by: Spouse Allergies tomatoes Allergy (Unknown, Uncoded 05/27/23 13:37) rash Patient : Yes HPI HPI Comments History of Present Illness Details Presenting for ER follow-up. The patient went to the emergency room 2 days ago for difficulty urinating was diagnosed with UTI and was prescribed antibiotics at discharge urine test was positive hCG quantitative was 501, blood type O positive, pelvic ultrasound showed the following: IMPRESSION: 1. No intrauterine or decidual reaction is seen. 2. A 3.8 x 1.2 x 1.4 cm left adnexal ovo id simple cystic lesion is seen, which may represent a hydrosalpinx. An ectopic is a less likely differential consideration (10% association with ectopic ). There is no solid adnexal mass, tubal ring sign or ring of fire sign to suggest ectopic . There is no free fluid. Recommend clinical correlation, including correlation with serial beta hCG levels, together with follow-up ultrasound imaging as clinically indicated. Obstetrical evaluation is recommended. Follow-up hCG yesterday was 665 and today's hCG was 701 repeat ultrasound showed the following: IMPRESSION: 1. No intrauterine or decidual reaction is seen. 2. A 2.9 x 1.2 x 1.5 cm left adnexal tub ular fluid-filled fracture is again seen, which may represent a hydrosalpinx. There is trace free fluid in the pelvis. Recommend correlation with quantitative beta hCG levels. Obstetrical evaluation should be considered. Since then the patient is doing well her urinary symptoms have improved markedly could no abdominal or pelvic pain or vaginal bleeding. [facility] Medical History No known health problems Surgical History History of Family History Mother Depression Social History Alcohol intake: never Patient Tobacco Use Status: Never used Tobacco service: No Current occupational status: unemployed Review of Systems Const All systems reviewed & are unremarkable except as noted in HPI and below Reports as per HPI and Reports no additional complaints GI Reports no additional complaints Reports no additional complaints Physical Exam Vital Signs: Last Vital Signs BP 126/70 05/27/23 13:36 GI Palpation (GI): Soft to palpation and nontender General: Yes no CVA tenderness External Female Exam: normal external appearance and normal appearance of the urethra Speculum Exam - Vagina: normal appearance of the vagina, normal palpation, no lesions and no masses Speculum Exam - Cervix: normal appearance of the cervix, normal palpation, no lesions, no masses and nontender Bimanual exam- vagina & uterus: normal bimanual exam, normal palpation, uterine size normal, normal palpation, uterine shape normal, No Cervical tenderness present and non-tender Bimanual Exam- Adnexa, other: normal adnexae Back/Spine/Pelvis Back: no CVA tenderness Assessment & Plan Assessment & Plan (1) Early stage of : Code(s): Z34.90 - Encounter for supervision of normal , unspecified, unspecified trimester Plan: Discussed with the patient the rate of rise of HCG level is below the 49%, which is expected in the majority of normal intrauterine gestation in the finding on ultrasound, no IUP with ? left hydrosalpinx, cannot rule out ectopic. The differential diagnosis discussed with the patient included either early ectopic versus early SAB with a small possibility of normal intrauterine gestation. Options of treatment were discussed with the patient includin- Expected management for the coming 48 hours and repeat HCG with or without pelvic Ultrasound. 2- Treat as if she has tubal with methotrexate or 3- Uterine aspiration. All the pros and cons and risks and benefits of each treatment approach were discussed with the patient. 1-The advantage of expectant management were discussed with the patient, being prevention of possible exposure to teratogenicity or risk of spontaneous in case of an early normal , the risk being delayed diagnosis and treatment of ectopic and possible rupture with all its possible consequences including intra-abdominal bleed and possible . 2- Explained to the patient that the use of curettage as a diagnostic tool is limited by the potential for disruption of a viable . In addition, discussed with the patient that the sensitivity of curettage in finding chorionic villi is only 70 percent. Pipelle endometrial biopsy is even less sensitive than curettage for detection of villi; sensitivities reported is between 30 and 60 percent. If curettage is performed, serum HCG levels can be followed postcurettage if histopathology does not confirm the clinical impression. When an IUP has been evacuated, hCG levels should drop by at least 15 percent the day after evacuation. There might be an advantage of performing aspiration only on patients with both an HCG concentration below the discriminatory zone and a low doubling rate, since 30 percent of these patients have a nonviable intrauterine gestation, and the remainder have an ectopic . Knowing the results of aspiration avoids unnecessary methotrexate treatment of the 30 percent of patients without ectopic . 3-Furthermore discussed with the patient the 3rd option which is treatment with methotrexate without uterine aspiration. The advantage of early treatment of presumed tubal with methotrexate was discussed with the patient, including but not limited to reducing the risk of ruptured ectopic with all its potential consequences, in addition discussed with the patient methotrexate treatment risks including but not limited to, possible exposure to methotrexate to a normal intra and and increase the risk of spontaneous and congenital anomalies. The patient decided to wait 48 hours repeat HCG and treat accordingly. Instructions given to the patient to the importance of compliance and timely HCG follow-up in 48 hours for an early and accurate diagnosis, and to call or go to the emergency room if pain or vaginal bleeding occurs, all questions answered, the patient verbalized understanding and agreed with the plan. Follow-up in 48 hours for further management. Orders: Orders CT NG by PCR Today Z34.90 - Encounter for supervision of normal , unspecified, unspecified trimester HCG Quantitative Today Z34.90 - Encounter for supervision of normal , unspecified, unspecified trimester HCG Quantitative 05/29/23 Z34.90 - Encounter for supervision of normal , unspecified, unspecified trimester Coding Level of Care Code Est Pt Level 3 (61591) Diagnoses Early stage of Z34.90
[2023-05-27 13:36] VITALS: BP 126/70
== END 2023-05-27 15:00 | disposition home or self-care (01) ==
PROVIDERS: Visit Provider Obstetrics & Gynecology
DX: Z34.90 Encounter for supervision of normal pregnancy, unspecified, unspecified trimester (principal)
CPT/HCPCS: 99213

== ENCOUNTER 2023-05-27 14:01 | Outpatient (REF) | payer OTHER, SELFPAY ==
[2023-05-28 05:05] LABS: CT PCR NOT DETECTED (Not Detect.); NG PCR NOT DETECTED (Not Detect.)
== END 2023-05-27 14:02 | disposition home or self-care (01) ==
LOC: HO.LNP 14:01
PROVIDERS: Visit Provider Obstetrics & Gynecology
DX: Z34.90 Encounter for supervision of normal pregnancy, unspecified, unspecified trimester (principal)
CPT/HCPCS: 0353U

== ENCOUNTER 2023-05-29 09:05 | Outpatient (REF) | payer OTHER, SELFPAY ==
--- NOTE | ~2023-05-29 | US_ITS ---
EXAMINATION: US OBSTETRICAL ULTRASOUND CLINICAL INFORMATION: Abnormal beta hCG COMPARISON: Previous exam May 25 and 05/27/2023 LMP: 05/16/2023. Gestational age by maternal dates is 1 weeks 6 days. Estimated date of delivery by maternal dates is 02/20/2024. TECHNIQUE: Transabdominal and transvaginal OB ultrasound. Transvaginal exam was performed for better visualization of the uterus and ovaries. FINDINGS: The uterus measures 10.8 x 4.2 x 5.3 cm in dimension. No uterine gestational sac is seen. Endometrial thickness measures 0.8 cm. There is a nabothian cyst in the cervix. The left ovary measures 2.4 x 1.9 x 3 cm. There is a heterogeneous left adnexal mass the left ovary. This measures 4.3 x 4.3 x 4.5 cm. This demonstrates minimal vascularity. There is a small amount of free fluid in the left adnexa. There is a dilated cystic tubular structure in the left adnexa questionable hydrosalpinx. The right ovary is normal. The right ovary measures 2.4 x 1.9 x 3 cm. US/US OB pelvic and transvaginal IMPRESSION: No intrauterine seen. 4.3 x 4.3 x 4.5 cm heterogeneous solid left adnexal mass, small amount of fluid surrounding the left adnexa and question left hydrosalpinx. Findings are concerning for left adnexal ectopic . Findings were communicated to Lo GILMORE in Dr Henderson's office by the mammography technologist at the completion of the exam. Patient was advised to go to the OB office. Findings will be communicated by the [facility] paraprofessional education assistant.
[2023-05-29 09:56] LABS: HCG Quantitative 813 mIU/mL
[2023-05-29 11:21] LABS: Alanine Aminotransferase 36 U/L (0-31); Aspartate Amino Transferase 27 U/L (5-31); Estimated Glomerular Filt Rate > 60
[2023-05-29 11:31] LABS: Hematocrit 39.1 % (37.0-47.0); Hemoglobin 12.4 g/dl (12.0-16.0); Mean Corpuscular HGB Conc 31.7 g/dl (31.0-35.0); Mean Corpuscular Hemoglobin 27.5 pg (27.0-33.0); Mean Corpuscular Volume 86.7 fL (80.0-98.0); Mean Platelet Volume 9.3 fL (9.4-12.3); Platelet Count 260 X10*3/uL (160-400); Red Blood Count 4.51 X10*6/uL (4.20-5.50); Red Cell Distribution Width 13.6 % (11.0-16.0)
== END 2023-05-29 09:06 | disposition home or self-care (01) ==
LOC: HO.LAB 09:05
PROVIDERS: Visit Provider Obstetrics & Gynecology
DX: O00.90 Unspecified ectopic pregnancy without intrauterine pregnancy (principal)
CPT/HCPCS: 36415; 76801; 76817; 82565; 84450; 84460; 84702; 85027; 99212

== ENCOUNTER 2023-05-29 09:38 | Outpatient (AMB) | payer OTHER, SELFPAY ==
--- NOTE | 2023-05-29 10:13 | MHC.OFFVIS ---
Intake Intake Visit Reasons: HCG follow up Allergies tomatoes Allergy (Unknown, Uncoded 05/27/23 13:37) rash HPI HPI Comments History of Present Illness Details The patient is presenting for hCG follow-up with no complaints, no abdominal/pelvic pain and no vaginal bleeding. Ultrasound done 2 days ago showed the following: The uterus is anteverted. Uterine echotexture is heterogeneous. The uterus measures 10.8 x 4.4 x 4.8 cm transabdominally. The endometrial stripe measures 0.7 cm in thickness. Cervical nabothian cysts are present. The cervix is closed. Trace free fluid in pelvis. No gestational sac, yolk sac or pole is seen. There is no decidual reaction. There is no significant subchorionic hemorrhage or hematoma. MATERNAL ADNEXA: The right maternal ovary measures 2.1 x 1.8 x 1.9 cm. The left maternal ovary measures 2.8 x 1.8 x 2.6 cm. Tubular fluid-filled structure in the left adnexa measures 2.9 x 1.2 x 1.5 cm and is best identified transabdominally. HCG done today was 813 , 711 on 05/27 and 665 on 05/25 Pelvic ultrasound done today , no official report available yet but preliminary read by coroner forensic technician showed: Left 4.5 x 4.3 x 4.3 cm heterogenous mass vascular highly suggestive ectopic . Left hydrosalpinx. No [facility]UP [facility] Medical History No known health problems Surgical History History of Family History Mother Depression Social History Alcohol intake: never Patient Tobacco Use Status: Never used Tobacco service: No Current occupational status: unemployed Review of Systems Const All systems reviewed & are unremarkable except as noted in HPI and below Reports as per HPI and Reports no additional complaints GI Reports no additional complaints Reports no additional complaints Physical Exam GI Inspection: Yes normal to inspection Palpation (GI): Soft to palpation, not firm and nontender Assessment & Plan Assessment & Plan (1) Ectopic : Code(s): O00.90 - Unspecified ectopic without intrauterine Plan: Discussed with the patient the rate of hCG rise below the 49% and the findings on ultrasound both increasing the suspicion of ectopic although nonviable intrauterine or a viable intrauterine is still a possibility. Discussed with the patient treatment options including the following: Option 1 is methotrexate treatment; All the pros and cons risks and benefits of this approach were discussed with the patient including but not limited to, failure rate of MTX ~15%, possibly higher because of the size of ectopic being above 4 cm, possible exposure of methotrexate teratogenicity to an early intrauterine not diagnosed by ultrasound with the risk of SAB and severe deformities, possibility of a early intrauterine . Option 2. Since the size of the adnexal ectopic the around 4.5 cm , which is a relative contraindication to methotrexate, laparoscopic salpingostomy possible partial salpingectomy is an option of treatment. Discussed with the patient the benefits and risks of the procedure. The patient decided to seek a 2 nd opinon and be evaluated at [facility] since she is concerned about discrepancy between the finding on today's pelvic ultrasound showing a 4.5 cm mass suspicious for an ectopic and the last 2 previous ultrasound was no such findings. Explained to patient the importance of close follow-up in order to prevent potential consequences of ectopic risk of rupture intra-abdominal bleed. All questions answered, the patient verbalized understanding. I called [facility] at [facility] and discussed the case with Candice Starr CNM and records faxed [phone] Orders: Orders Creatinine Today Z34.90 - Encounter for supervision of normal , unspecified, unspecified trimester Complete Blood Count no Diff Today Z34.90 - Encounter for supervision of normal , unspecified, unspecified trimester Aspartate Amino Transferase Today Z34.90 - Encounter for supervision of normal , unspecified, unspecified trimester Alanine Aminotransferase Today Z34.90 - Encounter for supervision of normal , unspecified, unspecified trimester Coding Level of Care Code Est Pt Level 3 (48890) Diagnoses Ectopic O00.90
== END 2023-05-29 13:02 | disposition home or self-care (01) ==
LOC: HO.HWS 09:38
PROVIDERS: Visit Provider Obstetrics & Gynecology
DX: O00.90 Unspecified ectopic pregnancy without intrauterine pregnancy (principal)
CPT/HCPCS: 99213